=== PATIENT | female | born 1995 | race Two or more races ===

== ENCOUNTER 2024-11-04 09:49 | Outpatient (AMB) | payer MEDICAID, SELFPAY ==
[2024-11-04 09:57] VITALS: BP 128/80; PULSE 90; RESP 16; TEMP 36.2; O2SAT 98; BMI 28.6
--- NOTE | 2024-11-04 09:57 | OBCLNT_ITS ---
Vital Signs 11/04/24 09:57 Height 1.68 m Height Method Stated Weight 80.853 kg Weight Measurement Method Standing Scale BMI 28.6 BP 128/80 Blood Pressure Source Automatic Cuff Blood Pressure Location Left Upper Arm Position Sitting Respiration 16 Pulse 90 Pulse Source Monitor Temp 97.2 F Temp Source Oral Pulse Oximetry (%) 98 Oxygen Delivery Method Room Air Allergies/Home Meds Allergies & Medications Allergies NKA* Allergy (Uncoded 11/04/24 09:59) Medication Reconciliation vit no.95-ferrous fumarate 28 mg-folic acid 800 mcg tablet () 1 tab PO QDAY 11/07/19 [History Confirmed 11/04/24] Intake Visit Data Collection New Patient or Established: Established Patient (seen at [facility] within 3 years) Reason for Visit:: OB Return Seen by Clinical Staff ONLY (RN/MA): No [employer] Kn[employer] Goods Required: No Do You Feel Safe at Home: Yes Authorities Contacted: N/A PCP or OBGYN visit in last 3 months: Yes Date of Last PCP or OBGYN visit: 10/27/24 Hx Now: Yes Are you currently on any form of Control: No Pain Present Currently: No Pain Scale Used: Albright-Salter/Numerical Pain scale:: 0 Smoking Status Smoking Status: Never smoker Questionnaires Covid-19 Vaccine Questionnaire Has patient been vacinated for Covid-19 Have you been vacinated for Covid-19: Yes PHQ-9 PHQ-2 Over the last 2 weeks, how often have you been bothered by any of the following problems? 1. Little interest or pleasure in doing things: not at all 2. Feeling down, depressed, or hopeless: not at all Total score: 0 PHQ-9 3. Trouble falling or staying asleep, or sleeping too much: Not at all 4. Feeling tired or having little energy: Not at all 5. Poor appetite or overeating: Not at all 6. Feeling bad about yourself - or that you are a failure or have let yourself or your family down: Not at all 7. Trouble concentrating on things, such as reading the newspaper or watching television: Not at all 8. Moving or speaking so slowly that other people could have noticed? - Or the opposite - being so fidgety or restless that you have been moving around a lot more than usual: not at all 9. Thoughts that you would be better off or of hurting yourself in some way: Not at all Total score: 0 Source: Developed by Drs. Elmer Morrissey, Carla Garza, Maximino Roche and colleagues, with an educational kaylene from [employer]. 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 at Home: Yes Past Medical History Past Medical History Have you ever been diagnosed with any of the following: Neurological Problems Cerebrovascular Accident (CVA): No Transient Ischemic Attacks (TIA): No Dementia: No Alzheimer's Disease: No Parkinson's Disease: No Brain Tumor: No Meningitis: No Seizures: No Epilepsy: No Multiple Sclerosis: No Cerebral Palsy: No Amyotrophic Lateral Sclerosis (ALS/Stephanie Gehrig's): No Guillain-[place] Syndrome: No Spina Bifida: No Paralysis: No Peripheral Neuropathy: No Nam's Palsy: No Subdural Hematoma: No Migraine: No Head Trauma: No Spinal Cord Injury: No Traumatic Brain Injury: No Cardiology Problems Myocardial Infarction: No Cardiac Arrhythmia: No Atrial Fibrillation: No Angina: No Heart Murmur: No Coronary Artery Disease: No Atherosclerotic Heart Disease: No Peripheral Vascular Disease: No Hypercholesterolemia: No Aneurysm: No Congestive Heart Failure: No Congenital Heart Disease: No Valvular Heart Disease: No Rheumatic Fever: No Cardiomyopathy: No Edema: No Pericarditis: No Cellulitis: No Deep Vein Thrombosis: No Hypertension: Yes (mother,father, grandfather) Hypotension: No Respiratory Problems Chronic Obstructive Pulmonary Disease (COPD): No Asthma: No Bronchitis: No Smoking: No Smoking Exposure: No Tobacco Use: No Clubbing: No Exposure to Respiratory Irritants: No Intubation: No Stomache/Intestinal Problems Liver Cancer: No Hepatitis: No Cirrhosis: No Pancreatic Cancer: No Colorectal Cancer: No Genital/Urinary Problems Renal Disease: No Prostate Cancer: No Reproductive Problems Breast Cancer: No Endometriosis: No Fibroids: No Previous Pregnancies: Yes (x1) Testicular Cancer: No Musculoskeletal Problems Bone Cancer: No Head,Eye,Nose,Throat Problems Cataracts: No Glaucoma: No Endocrine Problems Diabetes Mellitus Type 1: No Diabetes Mellitus Type 2: No Hypoglycemia: No Tyson's Syndrome: No Waller's Disease: No Hyperthyroidism: No Hypothyroidism: No Thyroid Cancer: No Parathyroid Disease: No Pituitary Disease: No Systemic Lupus Erythematosus: No Syndrome of Inappropriate Antidiuretic Hormone: No Adrenal Disease: No Graves' Disease: No Blood Problems Anemia: Yes Psychologic Problems Schizophrenia: No Recreational Drug Use: No Bipolar Disorder: No Depression: No Anxiety: No Other Problems Hospitalization: No Down Syndrome: No Developmental Delay: No Shingles: No Falls: No Blood Transfusions: No Blood Transfusion Reaction: No Anesthesia Reactions: No Organ Transplant: No Chemotherapy: No Radiation Therapy: No Hyperbaric Therapy: No MRSA: No VRSA: No Vancomycin-Resistant Enterococci: No Human Immunodeficiency Virus (HIV): No Chicken Pox: No Measles: No Mumps: No Rubella (Maltese Measles): No Pertussis: No Clostridium Difficile: No Cervical Cancer: No Lung Cancer: No Ovarian Cancer: No Surgical History Breast Surgery: No Cancer Surgery: No Carotid Endarterectomy: No History of Present Illness HPI Narrative The patient, who is , reports ongoing nausea. She denies any recent spotting or cramping. The patient was seen in the clinic last week. She mentions not receiving a prescription for vitamins from the provider at [facility]. The provider attempted to perform an ultrasound during the visit but was unable to obtain adequate visualization for measurements or assessment. No cramping/ bleeding No nausea/ vomiting Review of Systems Review of Systems Systems Reviewed: All systems reviewed, normal except as documented Visit MÓNICA Calculator Estimated Delivery Date Method Current WG Current Estimate 06/18/25 LMP (Certain) 7w 5d Exam General Limitations: no limitations General Appearance: alert, in no apparent distress, comfortable, cooperative, healthy appearing, well developed and well groomed Head Head exam: atraumatic, normocephalic and normal inspection Neck Neck exam: Present normal inspection, full ROM and trachea midline Chest Chest inspection: Present normal inspection and symmetric chest wall rise Abdominal Abdominal exam: Present soft and normal bowel sounds Extremities Extremities exam: Present normal inspection and full ROM Back Back exam: Present normal inspection and full ROM Psych Psychiatric exam: Present normal affect and normal mood Skin Skin exam: Present warm, dry, intact and normal color Assessment & Plan Diagnosis / Problem List (1) Threatened : Status: Acute Plan: with nausea Patient is in early with ongoing nausea. There has been no recent spotting or cramping. A previous ultrasound was performed last week. Today's in- office abdominal ultrasound was inconclusive due to poor visualization. The clinician is concerned about potential miscarriage and has ordered a formal transvaginal ultrasound to confirm viability. - STAT transvaginal ultrasound ordered to confirm viability - Prescription for vitamins to be resent to pharmacy - Follow-up after ultrasound results are available (2) Supervision of high risk , unspecified, first trimester: Status: Acute Plan: Pt Education Educated the patient on the importance of care, including taking vitamins with folic acid, iron, and calcium. Emphasized avoiding alcohol, smoking, and certain medications. Discussed common symptoms like nausea and fatigue, advising small, frequent meals and adequate hydration. Explained the need for regular check-ups and recommended safe physical activities. Instructed on signs of complications, such as severe cramping or bleeding, and when to seek immediate medical attention. Highlighted the importance of a balanced diet and avoiding high-risk foods. Encouraged open communication about any concerns or questions. Encouraged keeping up with all appointments and tests. Additional Assessment Medical Decision Making Kasia Feldman is a patient presenting with ongoing nausea and a history of spotting. The patient's continued nausea without new spotting or cramping suggests a potentially normal early course. However, due to inadequate visualization on bedside ultrasound, there is concern for potential miscarriage or ectopic . The decision to order a formal transvaginal ultrasound is based on the need to confirm viability and rule out complications such as ectopic or missed . The urgency of the ultrasound request (STAT) indicates a high level of concern for these potential complications. The limited bedside ultrasound findings, including visualization of the bladder and ovary, contributed to the decision for more comprehensive imaging. Office Procedures OB Clinic LOC & Office Proc's Nursing/Assessment Patient Status: Established Patient OB Clinic Nursing Assessment: BP Monitoring, Medication Reconciliation, Update PMH in EMR and Vital Signs OB Clinic Coordination of Care: Consent,records obtained, informed consent, Education Simp Pt/Fam and Staff clarify orders Special Needs: Heart tones Established Patient Charge Established Patient Point Assignment: 105 Established Patient Point Charge: EP Level 3 (80-115)
== END 2024-11-04 10:20 | disposition home or self-care (01) ==
LOC: HODSOBC 09:49
PROVIDERS: PCP Obstetrics & Gynecology; Referring Provider Obstetrics & Gynecology; Supervising Provider Obstetrics & Gynecology; Visit Provider Obstetrics & Gynecology
DX: O20.0 Threatened abortion (principal); Z3A.00 Weeks of gestation of pregnancy not specified
CPT/HCPCS: 99213; G0463

== ENCOUNTER → 2024-11-05 | Outpatient (CLI) | payer MEDICAID, SELFPAY ==
--- NOTE | 2024-11-05 15:03 | XR_ITS ---
Examination: Complete OB ultrasound, less than 14 weeks, transabdominal Date and time of exam: November 05, 2024 at 1514 hrs. Indications: High risk diagnosis Technique: Obstetrical ultrasound images less than 14 weeks performed via transabdominal imaging Findings: A normal shaped single intrauterine gestation is present in the uterus. pole 1.2 cm corresponds to 7 weeks 3 days gestational age. Cardiac motion 152 BPM Ultrasonographic survey of visible and placental structures unremarkable. Amniotic fluid volume appears appropriate for this estimated gestational age. Right ovary 3.5 cm arterial flow Left ovary 3.0 cm arterial flow 18 mm cyst Impression: Viable intrauterine gestation 7 weeks 3 days.
== END | disposition home or self-care (01) ==
PROVIDERS: PCP Family Medicine; Referring Provider Obstetrics & Gynecology; Visit Provider Obstetrics & Gynecology
DX: O20.0 Threatened abortion (principal); Z3A.01 Less than 8 weeks gestation of pregnancy
CPT/HCPCS: 76801

== ENCOUNTER 2024-11-20 11:17 | Outpatient (AMB) | payer MEDICAID, SELFPAY ==
--- NOTE | 2024-11-20 11:20 | AMB.OBVISIT ---
Vital Signs 11/20/24 11:24 Height 1.68 m Height Method Stated Weight 82.781 kg Weight Measurement Method Standing Scale BMI 29.3 BP 135/86 H Blood Pressure Source Automatic Cuff Blood Pressure Location Left Upper Arm Position Sitting Respiration 16 Pulse 82 Pulse Source Monitor Temp 98 F Temp Source Oral Pulse Oximetry (%) 99 Oxygen Delivery Method Room Air Allergies/Home Meds Allergies & Medications Allergies NKA* Allergy (Uncoded 11/20/24 11:25) Medication Reconciliation vit no.95-ferrous fumarate 28 mg-folic acid 800 mcg tablet () 1 tab PO QDAY 11/20/24 [History Confirmed 11/20/24] vitamin with calcium no.72-iron 27 mg-folic acid 1 mg tablet ( Vitamins Plus Low Iron) 1 tab PO QDAY 90 days #90 tabs 11/20/24 [Rx] Intake Visit Data Collection New Patient or Established: Established Patient (seen at [facility] within 3 years) Reason for Visit:: CARE Seen by Clinical Staff ONLY (RN/MA): No Curator Of Collections Required: No Do You Feel Safe at Home: Yes Authorities Contacted: N/A PCP or OBGYN visit in last 3 months: Yes Date of Last PCP or OBGYN visit: 11/04/24 Hx Now: Yes Are you currently on any form of Control: No Last menstrual period: 09/11/24 Pain Present Currently: No Pain Scale Used: Albright-Salter/Numerical Pain scale:: 0 Smoking Status Smoking Status: Never smoker Questionnaires Covid-19 Vaccine Questionnaire Has patient been vacinated for Covid-19 Have you been vacinated for Covid-19: Yes PHQ-9 PHQ-2 Over the last 2 weeks, how often have you been bothered by any of the following problems? 1. Little interest or pleasure in doing things: not at all 2. Feeling down, depressed, or hopeless: not at all Total score: 0 PHQ-9 3. Trouble falling or staying asleep, or sleeping too much: Not at all 4. Feeling tired or having little energy: Not at all 5. Poor appetite or overeating: Not at all 6. Feeling bad about yourself - or that you are a failure or have let yourself or your family down: Not at all 7. Trouble concentrating on things, such as reading the newspaper or watching television: Not at all 8. Moving or speaking so slowly that other people could have noticed? - Or the opposite - being so fidgety or restless that you have been moving around a lot more than usual: not at all 9. Thoughts that you would be better off or of hurting yourself in some way: Not at all Total score: 0 Source: Developed by Drs. Elmer Morrissey, Carla Garza, Maximino Roche and colleagues, with an educational kaylene from [employer]. 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 at Home: Yes Past Medical History Past Medical History Have you ever been diagnosed with any of the following: Neurological Problems Cerebrovascular Accident (CVA): No Transient Ischemic Attacks (TIA): No Dementia: No Alzheimer's Disease: No Parkinson's Disease: No Brain Tumor: No Meningitis: No Seizures: No Epilepsy: No Multiple Sclerosis: No Cerebral Palsy: No Amyotrophic Lateral Sclerosis (ALS/Stephanie Gehrig's): No Guillain-[place] Syndrome: No Spina Bifida: No Paralysis: No Peripheral Neuropathy: No Nam's Palsy: No Subdural Hematoma: No Migraine: No Head Trauma: No Spinal Cord Injury: No Traumatic Brain Injury: No Cardiology Problems Myocardial Infarction: No Cardiac Arrhythmia: No Atrial Fibrillation: No Angina: No Heart Murmur: No Coronary Artery Disease: No Atherosclerotic Heart Disease: No Peripheral Vascular Disease: No Hypercholesterolemia: No Aneurysm: No Congestive Heart Failure: No Congenital Heart Disease: No Valvular Heart Disease: No Rheumatic Fever: No Cardiomyopathy: No Edema: No Pericarditis: No Cellulitis: No Deep Vein Thrombosis: No Hypertension: Yes (mother,father, grandfather) Hypotension: No Respiratory Problems Chronic Obstructive Pulmonary Disease (COPD): No Asthma: No Bronchitis: No Smoking: No Smoking Exposure: No Tobacco Use: No Clubbing: No Exposure to Respiratory Irritants: No Intubation: No Stomache/Intestinal Problems Liver Cancer: No Hepatitis: No Cirrhosis: No Pancreatic Cancer: No Colorectal Cancer: No Genital/Urinary Problems Renal Disease: No Prostate Cancer: No Reproductive Problems Breast Cancer: No Endometriosis: No Fibroids: No Previous Pregnancies: Yes (x1) Testicular Cancer: No Musculoskeletal Problems Muscular Dystrophy: No Myasthenia Gravis: No Marfan's Syndrome: No Bone Cancer: No Arthritis: No Head,Eye,Nose,Throat Problems Cataracts: No Glaucoma: No Blind: No Retinal Detachment: No Macular Degeneration: No Chronic Ear Infections: No Deafness: No Eye Prosthesis: No Endocrine Problems Diabetes Mellitus Type 1: No Diabetes Mellitus Type 2: No Hypoglycemia: No [place]'s Syndrome: No [place]'s Disease: No Hyperthyroidism: No Hypothyroidism: No Thyroid Cancer: No Parathyroid Disease: No Pituitary Disease: No Systemic Lupus Erythematosus: No Syndrome of Inappropriate Antidiuretic Hormone: No Adrenal Disease: No Graves' Disease: No Blood Problems Anemia: Yes Psychologic Problems Schizophrenia: No Recreational Drug Use: No Bipolar Disorder: No Depression: No Anxiety: No Other Problems Hospitalization: No Down Syndrome: No Developmental Delay: No Shingles: No Falls: No Blood Transfusions: No Blood Transfusion Reaction: No Anesthesia Reactions: No Organ Transplant: No Chemotherapy: No Radiation Therapy: No Hyperbaric Therapy: No MRSA: No VRSA: No Vancomycin-Resistant Enterococci: No Human Immunodeficiency Virus (HIV): No Chicken Pox: No Measles: No Mumps: No Rubella (Gu[place]ian Measles): No Pertussis: No Clostridium Difficile: No Cervical Cancer: No Lung Cancer: No Ovarian Cancer: No Surgical History Breast Surgery: No Cancer Surgery: No Carotid Endarterectomy: No History of Present Illness ROSIE Pedroza presents for follow-up care. She was previously seen on 11-04-2024, where a bedside ultrasound showed a pole but no heart tones. A subsequent official transvaginal ultrasound on 11-05-2024 revealed an intrauterine gestational sac corresponding to 7 weeks and 3 days, with cardiac motion of 152 beats per minute, overall normal ultrasound. The patient denies any other problems today. The patient reports experiencing dizziness and nausea but denies any cramping. She did not receive her previously prescribed nausea medication. Initial labs show blood group O with Rh positive, hepatitis C negative, rubella immune, RPR non-reactive, HIV negative, hepatitis B negative, and urine culture with no growth. The patient is currently at 9 weeks and 2 days gestation. No CTX/LOF/VB Review of Systems Review of Systems Systems Reviewed: All systems reviewed, normal except as documented Visit MÓNICA Calculator Estimated Delivery Date Method Current WG Current Estimate 06/21/25 Ultrasound #1 10w 2d Other Estimates 06/18/25 LMP (Certain) 10w 5d Exam General Limitations: no limitations General Appearance: alert, in no apparent distress, comfortable, cooperative, healthy appearing, well developed and well groomed Head Head exam: atraumatic, normocephalic and normal inspection Neck Neck exam: Present normal inspection, full ROM and trachea midline Chest Chest inspection: Present normal inspection and symmetric chest wall rise Abdominal Abdominal exam: Present soft and normal bowel sounds Extremities Extremities exam: Present normal inspection and full ROM Back Back exam: Present normal inspection and full ROM Psych Psychiatric exam: Present normal affect and normal mood Skin Skin exam: Present warm, dry, intact and normal color Assessment & Plan Diagnosis / Problem List (1) Threatened : Status: Acute (2) Supervision of high risk , unspecified, first trimester: Status: Acute Plan: Intrauterine at 9 weeks 2 days gestation Patient is at 9 weeks 2 days gestation based on last menstrual period and confirmed by ultrasound on 11-05-2024. The ultrasound showed an intrauterine gestational sac corresponding to 7 weeks and 3 days, with cardiac motion of 152 beats per minute, overall normal. The gestational age difference of less than 7 days between LMP and ultrasound is considered a match. Initial labs show blood group O with Rh positive, hepatitis C negative, rubella immune, RPR non-reactive, HIV negative, hepatitis B negative, and urine culture with no growth. - Genetic testing paperwork provided for testing at 9 weeks 2 days - Results expected in 2 to 3 days after blood draw - Referral made for 12-week ultrasound in [place] - Follow-up appointment scheduled in 4 weeks Nausea and dizziness in Patient reports experiencing dizziness and nausea, common symptoms in early . She did not receive her previously prescribed nausea medication. - Prescription for nausea medication re-sent to [facility] on [address] Office Procedures OB Clinic LOC & Office Proc's Nursing/Assessment Patient Status: Established Patient OB Clinic Nursing Assessment: Medication Reconciliation, Update PMH in EMR and Vital Signs OB Clinic Coordination of Care: Complex Care and Chronic Disease 1-5, Consent,records obtained, informed consent, Education Simp Pt/Fam and Staff clarify orders Special Needs: Heart tones Established Patient Charge Established Patient Point Assignment: 115 Established Patient Point Charge: EP Level 3 (80-115)
[2024-11-20 11:24] VITALS: BP 135/86; PULSE 82; RESP 16; TEMP 36.6; O2SAT 99; BMI 29.3
== END 2024-11-20 11:37 | disposition home or self-care (01) ==
LOC: HODSOBC 11:17
PROVIDERS: PCP Obstetrics & Gynecology; Referring Provider Obstetrics & Gynecology; Supervising Provider Obstetrics & Gynecology; Visit Provider Obstetrics & Gynecology
DX: O20.0 Threatened abortion (principal); O09.91 Supervision of high risk pregnancy, unspecified, first trimester; Z3A.09 9 weeks gestation of pregnancy
CPT/HCPCS: 99213; G0463

== ENCOUNTER 2024-12-24 11:36 | Outpatient (AMB) | payer MEDICAID, SELFPAY ==
--- NOTE | 2024-12-24 12:39 | OBCLNT_ITS ---
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 1. Little interest or pleasure in doing things: not at all PHQ-9 8. Moving or speaking so slowly that other people could have noticed? - Or the opposite - being so fidgety or restless that you have been moving around a lot more than usual: not at all Source: Developed by Drs. Elmer Morrissey, Carla Garza, Maximino Roche and colleagues, with an educational kaylene from [employer]. Social History Living Situation History Lives With: Family Housing: House Tobacco History Smoking Status: Never smoker Second Hand Smoke Exposure: No Alcohol History Alcohol Intake: Never Substance Use History Substance Use: no Domestic Abuse History Do You Feel Safe at Home: Yes Past Medical History Past Medical History Have you ever been diagnosed with any of the following: Neurological Problems Cerebrovascular Accident (CVA): No Transient Ischemic Attacks (TIA): No Dementia: No Alzheimer's Disease: No Parkinson's Disease: No Brain Tumor: No Meningitis: No Seizures: No Epilepsy: No Multiple Sclerosis: No Cerebral Palsy: No Amyotrophic Lateral Sclerosis (ALS/Stephanie Gehrig's): No Guillain-Dolph Syndrome: No Spina Bifida: No Paralysis: No Peripheral Neuropathy: No Nam's Palsy: No Subdural Hematoma: No Migraine: No Head Trauma: No Spinal Cord Injury: No Traumatic Brain Injury: No Cardiology Problems Myocardial Infarction: No Cardiac Arrhythmia: No Atrial Fibrillation: No Angina: No Heart Murmur: No Coronary Artery Disease: No Atherosclerotic Heart Disease: No Peripheral Vascular Disease: No Hypercholesterolemia: No Aneurysm: No Congestive Heart Failure: No Congenital Heart Disease: No Valvular Heart Disease: No Rheumatic Fever: No Cardiomyopathy: No Edema: No Pericarditis: No Cellulitis: No Deep Vein Thrombosis: No Hypertension: Yes (mother,father, grandfather) Hypotension: No Respiratory Problems Chronic Obstructive Pulmonary Disease (COPD): No Asthma: No Bronchitis: No Smoking: No Smoking Exposure: No Tobacco Use: No Clubbing: No Exposure to Respiratory Irritants: No Intubation: No Stomache/Intestinal Problems Liver Cancer: No Hepatitis: No Cirrhosis: No Pancreatic Cancer: No Colorectal Cancer: No Genital/Urinary Problems Renal Disease: No Reproductive Problems Breast Cancer: No Endometriosis: No Fibroids: No Previous Pregnancies: Yes (x1) Musculoskeletal Problems Muscular Dystrophy: No Myasthenia Gravis: No Marfan's Syndrome: No Bone Cancer: No Arthritis: No Head,Eye,Nose,Throat Problems Cataracts: No Glaucoma: No Blind: No Retinal Detachment: No Macular Degeneration: No Chronic Ear Infections: No Deafness: No Eye Prosthesis: No Endocrine Problems Diabetes Mellitus Type 1: No Diabetes Mellitus Type 2: No Hypoglycemia: No Austin's Syndrome: No Zack's Disease: No Hyperthyroidism: No Hypothyroidism: No Thyroid Cancer: No Parathyroid Disease: No Pituitary Disease: No Systemic Lupus Erythematosus: No Syndrome of Inappropriate Antidiuretic Hormone: No Adrenal Disease: No Graves' Disease: No Blood Problems Anemia: Yes Psychologic Problems Schizophrenia: No Recreational Drug Use: No Bipolar Disorder: No Depression: No Anxiety: No Other Problems Hospitalization: No Down Syndrome: No Developmental Delay: No Shingles: No Falls: No Blood Transfusions: No Blood Transfusion Reaction: No Anesthesia Reactions: No Organ Transplant: No Chemotherapy: No Radiation Therapy: No Hyperbaric Therapy: No MRSA: No VRSA: No Vancomycin-Resistant Enterococci: No Human Immunodeficiency Virus (HIV): No Chicken Pox: No Measles: No Mumps: No Rubella (Indonesian Measles): No Pertussis: No Clostridium Difficile: No Cervical Cancer: No Lung Cancer: No Ovarian Cancer: No Surgical History Breast Surgery: No Cancer Surgery: No Carotid Endarterectomy: No History of Present Illness HPI Narrative - Kasia Feldman is a 3 para 2 at 14 weeks and 3 days gestation presenting for a visit and review of lab results. - She reports ongoing nausea that comes and goes. - Patient continues to experience headaches, which were mentioned at the previous visit. - New symptoms since last visit: - Dizzy spells with near-fainting episodes - Patient catches herself and sits on the floor to prevent falling - Random nosebleed yesterday - Occurred on one side - Lasted approximately 30-40 minutes - Resolved spontaneously - Patient denies any other new symptoms or concerns. No CTX/LOF/VB. FM not perceived. No WELLS/ VS, Epig/RUQ Pain OB Ultrasound OB Ultrasound Ultrasound technique: transabdominal Visit OB Visit Log OB Flowsheet Initial Weight: Not Recorded Date -?-?-?-?-?-?-?-?-?-?-?-?- EGA Weight Edema CTX Effacement BP Fundal ht Pres Dilation Effacement Station Visit Note Alb Glu FHR Mov 12/24/24 -?-?-?-?-?-?-?-?-?-?-?-?- 14w 3d Kasia Feldman, at 14w3d gestation, presents for routine care and lab review. No CTX/LOF/VB. FM not yet perceived. No WELLS/VS, Epig/RUQ pain. Reports ongoing nausea, persistent heada ches, new dizziness with near-syncope, and a unilateral nosebleed lasting ~30?40 min (resolved). Ultrasound: FHR 154 bpm, movement noted. Maternity genome test (02/20/2025): 21% f etal fraction, negative for trisomies, female fetus. Assessment & Plan: at 14w3d with intrauterine pregnanc y. Labs and ultrasound reassuring. 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?avoid s tanding alone, stay hydrated, eat frequently Educate on epistaxis care; monitor for r ecurrence Reinforce labor signs and healthy practices 154 active MÓNICA Calculator Estimated Delivery Date Method Current WG Current Estimate 06/21/25 Ultrasound #1 14w 4d Other Estimates 06/18/25 LMP (Certain) 15w 0d Exam General General Appearance: alert, in no apparent distress and healthy appearing Head Head exam: atraumatic Neck Neck exam: Present normal inspection and trachea midline Chest Chest inspection: Present normal inspection and symmetric chest wall rise External exam: Present normal external exam; Absent tenderness Neuro Neurological exam: Present oriented X3 Psych Psychiatric exam: Present normal affect and normal mood Assessment & Plan Diagnosis / Problem List (1) Mild hyperemesis gravidarum: Status: Acute (2) Other specified related conditions, first trimester: Status: Acute (3) Other specified diseases and conditions complicating : Status: Acute (4) Epistaxis: Status: Acute (5) Other specified counseling: Status: Acute Plan Kasia Feldman is a 14 weeks and 3 days presenting for visit and review of lab results, with ongoing nausea, headaches, and recent episodes of dizziness and nosebleed. Intrauterine at 14 weeks 3 days gestation Assessment: Patient is a at 14 weeks and 3 days gestation. Maternity genome test results from February 20, 2025, show 21% fraction, negative for all trisomies and chromosomal abnormalities, with female gender identified. Ultrasound performed during the visit confirms cardiac activity with a heart rate of 154 bpm, which is within normal limits. movement was observed during the ultrasound. Plan: - Follow-up visit scheduled in 4 weeks - 20-week ultrasound scheduled for January 26 at [facility] Nausea and vomiting of Assessment: Patient reports ongoing nausea that comes and goes. This is consistent with her current gestational age, as hyperemesis typically improves after 15 weeks. Plan: - Anticipate improvement in symptoms over the next week as patient approaches 15 weeks gestation - Encourage adequate hydration and frequent small meals (every 4-5 hours) to maintain blood sugar levels Headaches Assessment: Patient reports ongoing headaches, which were also noted in the previous visit. This symptom is common during and may be related to hormonal changes or dehydration. Plan: - Continue to monitor symptoms - Encourage adequate hydration Dizziness and near-syncopal episodes Assessment: Patient reports recent episodes of dizziness and near-fainting, which she manages by sitting down. These symptoms are likely related to physiological changes in , particularly between 15-20 weeks when blood supply is increasingly diverted to the placenta and uterus. This typically resolves after 20 weeks gestation. Plan: - Advise patient to avoid being alone and to have someone nearby for assistance if possible - Encourage adequate hydration and frequent small meals to maintain blood sugar levels - Educate patient on the temporary nature of these symptoms, typically resolving after 20 weeks gestation - Monitor symptoms and reassess at next visit Epistaxis Assessment: Patient reports a recent episode of unilateral epistaxis lasting 30- 40 minutes, which resolved spontaneously. Nosebleeds are common in due to increased blood volume and hormonal changes affecting nasal mucosa. Plan: - Educate patient on proper technique for managing nosebleeds (apply direct pressure) - Monitor for recurrence; if epistaxis recurs, further evaluation may be warranted Educated the patient on labor signs, including regular contractions, lower back pain, and changes in vaginal discharge. Advised avoiding heavy lifting and getting adequate rest. Instructed to contact the office immediately if any signs occur. Discussed the importance of a balanced diet rich in folic acid, iron, and calcium, and provided a list of recommended and to-avoid foods. Emphasized avoiding high-sugar foods to reduce gestational diabetes risk. Encouraged hydration and frequent, small meals for energy..
== END 2024-12-24 12:22 | disposition home or self-care (01) ==
LOC: HODSOBC 11:36
PROVIDERS: PCP Obstetrics & Gynecology; Referring Provider Obstetrics & Gynecology; Supervising Provider Obstetrics & Gynecology; Visit Provider Obstetrics & Gynecology
DX: O09.892 Supervision of other high risk pregnancies, second trimester (principal); Z3A.14 14 weeks gestation of pregnancy; O21.0 Mild hyperemesis gravidarum; O26.892 Other specified pregnancy related conditions, second trimester; R04.0 Epistaxis; R51.9 Headache, unspecified
CPT/HCPCS: 99213; G0463

== ENCOUNTER 2025-01-28 13:56 | Outpatient (AMB) | payer MEDICAID, SELFPAY ==
[2025-01-28 14:25] VITALS: BP 129/85; PULSE 74; RESP 18; TEMP 36.2; O2SAT 97; BMI 31.8
--- NOTE | 2025-01-28 14:25 | OBCLNT_ITS ---
Vital Signs 01/28/25 14:25 Height 1.68 m Height Method Stated Weight 89.811 kg Weight Measurement Method Standing Scale BMI 31.8 BP 129/85 H Blood Pressure Source Automatic Cuff Blood Pressure Location Left Upper Arm Position Sitting Respiration 18 Pulse 74 Pulse Source Monitor Temp 97.2 F Temp Source Oral Pulse Oximetry (%) 97 Oxygen Delivery Method Room Air Allergies/Home Meds Allergies & Medications Allergies NKA* Allergy (Uncoded 01/28/25 14:27) Medication Reconciliation vit no.95-ferrous fumarate 28 mg-folic acid 800 mcg tablet () 1 tab PO QDAY 11/20/24 [History Confirmed 01/28/25] vitamin with calcium no.72-iron 27 mg-folic acid 1 mg tablet ( Vitamins Plus Low Iron) 1 tab PO QDAY 90 days #90 tabs 11/20/24 [Rx Confirmed 01/28/25] Intake Visit Data Collection New Patient or Established: Established Patient (seen at [facility] within 3 years) Reason for Visit:: OBC Seen by Clinical Staff ONLY (RN/MA): No Conflict Resolution Professional Required: No Do You Feel Safe at Home: Yes Authorities Contacted: N/A PCP or OBGYN visit in last 3 months: Yes Date of Last PCP or OBGYN visit: 11/20/24 Hx Now: Yes Are you currently on any form of Control: No Pain Present Currently: No Pain Scale Used: Albright-Salter/Numerical Pain scale:: 0 Smoking Status Smoking Status: Never smoker Questionnaires Covid-19 Vaccine Questionnaire Has patient been vacinated for Covid-19 Have you been vacinated for Covid-19: Yes PHQ-9 PHQ-2 Over the last 2 weeks, how often have you been bothered by any of the following problems? 1. Little interest or pleasure in doing things: not at all 2. Feeling down, depressed, or hopeless: not at all Total score: 0 PHQ-9 3. Trouble falling or staying asleep, or sleeping too much: Not at all 4. Feeling tired or having little energy: Not at all 5. Poor appetite or overeating: Not at all 6. Feeling bad about yourself - or that you are a failure or have let yourself or your family down: Not at all 7. Trouble concentrating on things, such as reading the newspaper or watching television: Not at all 8. Moving or speaking so slowly that other people could have noticed? - Or the opposite - being so fidgety or restless that you have been moving around a lot more than usual: not at all 9. Thoughts that you would be better off or of hurting yourself in some way: Not at all Total score: 0 If you checked off any problems, how difficult have these problems made it for you to do your work, take care of things at home, or get along with other people?: not difficult at all Source: Developed by Drs. Elmer Morrissey, Carla Garza, Maximino Roche and colleagues, with an educational kaylene from [employer]. 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 Patient reports occasional dizziness without fainting. Denies WELLS, VC, and epigastric pain. Patient had an anatomy ultrasound on 30 January 2025. Detailed anatomy survey was within normal limits. Gender is female. Cervix is 3.36 centimeters. Adnexa appear within normal limits. Anterior placenta, no previa. - Kasia Feldman is a 29-year-old presenting for care at 19 weeks and 3 days gestation. - Patient was last seen at 14 weeks gestation with complaints of: - Ongoing nausea - Headaches with near-syncope episodes - Epistaxis (nosebleeds) - Current symptoms and updates: - Patient reports feeling the beginning of movement - Experienced one or two additional episodes of epistaxis since last visit - Continues to experience lightheadedness, but denies fainting - Recent healthcare interactions: - Underwent maternal medicine ultrasound on January 26, 2025, at [facility] - Verbally informed that everything looked fine on the ultrasound Laboratory, Imaging, and Diagnostic Test Results - Anatomy Ultrasound (01/26/2025): - Detailed anatomy survey: Within normal limits - sex: Female - Cervix length: 3.36 cm - Adnexa: Appear within normal limits - Placenta: Anterior, no previa - presentation: Cephalic - heart rate: 151 bpm (normal) heart tones: 151 bpm. Review of Systems Review of Systems Systems Reviewed: All systems reviewed, normal except as documented Care OB Visit Log OB Flowsheet Initial Weight: Not Recorded Date -?-?-?-?-?-?-?-?-?-?-?-?- EGA Weight BP Alb Glu CTX Pres Fundal ht FHR Mov Dilation Station Effacement Hx Notes Visit Note 12/24/24 -?-?-?-?-?-?-?-?-?-?-?-?- 14w [address] becca Feldman, at 14w3d gestation, presents for routine care and lab review. No CTX/LOF/VB. FM not yet perceived. No WELLS/VS, Epig/RUQ pain. Reports ongoing nausea, persistent heada ches, new dizziness with near-syncope, and a unilateral nosebleed lasting ~30?40 min (resolved). Ultrasound: FHR 154 bpm, movement noted. Maternity genome test (02/20/2025): 21% f etal fraction, negative for trisomies, female fetus. Assessment & Plan: at 14w3d with intrauterine pregnanc y. Labs and ultrasound reassuring. 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?avoid s tanding alone, stay hydrated, eat frequently Educate on epistaxis care; monitor for r ecurrence Reinforce labor signs and healthy practice s MÓNICA Calculator Estimated Delivery Date Method Current WG Current Estimate 06/21/25 Ultrasound #1 21w 3d Other Estimates 06/18/25 LMP (Certain) 21w 6d Exam General General Appearance: alert, in no apparent distress and healthy appearing Head Head exam: atraumatic Neck Neck exam: Present normal inspection and trachea midline Chest Chest inspection: Present normal inspection and symmetric chest wall rise External exam: Present normal external exam; Absent tenderness Neuro Neurological exam: Present oriented X3 Psych Psychiatric exam: Present normal affect and normal mood Office Procedures OB Clinic LOC & Office Proc's Nursing/Assessment Patient Status: Established Patient OB Clinic Nursing Assessment: Medication Reconciliation, Update PMH in EMR and Vital Signs OB Clinic Coordination of Care: Education Complex Pt/Fam, Consent,records o btained, informed consent, Lab and Imaging orders, Results/Orders obtained and Staff clarify orders Special Needs: Heart tones Established Patient Charge Established Patient Point Assignment: 115 Established Patient Point Charge: EP Level 3 (80-115) Assessment & Plan Diagnosis / Problem List (1) Other specified diseases and conditions complicating : Status: Acute (2) Epistaxis: Status: Acute (3) Other specified counseling: Status: Acute (4) Other specified related conditions, first trimester: Status: Acute Plan Kasia Feldman, a 29-year-old female at 19 weeks and 3 days gestation, presenting for routine care with a history of nausea, headaches, near- syncope episodes, and epistaxis. Routine Care Assessment: Patient is at 19 weeks and 3 days gestation, progressing normally. Recent anatomy ultrasound on January 30, 2025, showed normal findings including a female fetus, cervical length of 3.36 cm, normal adnexa, and anterior placenta without previa. heart rate is 151 bpm, which is within normal limits. Patient reports feeling early movements. Previous symptoms of nausea and headaches with near-syncope episodes appear to have improved. Epistaxis has mostly resolved with only 1-2 recent episodes. Plan: - Continue vitamins - Maintain hydration, especially in warm weather - Return for follow-up visit in 4 weeks - Glucose tolerance test to be ordered at next visit (around 26 weeks gestation) - Monitor for continued dizziness and return sooner if symptoms persist or worsen Heart Rate (FHR) and Dates/Viability Verified Review Labs: Confirm results and address any abnormalities with treatment or referrals. History & Symptoms: Ask about nausea, vomiting, bleeding, or cramping. Screen for mental health concerns. Physical Exam: Check weight, blood pressure, and heart rate (via Doppler). Education: Discuss nutrition, exercise, and avoiding harmful substances. Review safe medications and warning signs (e.g., severe pain, bleeding). Screening Tests: Offer genetic screening if not done. Discuss upcoming anatomy scan (18-20 weeks). Plan: Schedule next visit (typically 4 weeks later) and any needed tests. Keep it supportive, address concerns, and ensure clear follow-up instructions.
== END 2025-01-28 14:37 | disposition home or self-care (01) ==
LOC: HODSOBC 13:56
PROVIDERS: PCP Obstetrics & Gynecology; Referring Provider Obstetrics & Gynecology; Supervising Provider Obstetrics & Gynecology; Visit Provider Obstetrics & Gynecology
DX: O09.892 Supervision of other high risk pregnancies, second trimester (principal); O99.891 Other specified diseases and conditions complicating pregnancy; R04.0 Epistaxis; Z3A.19 19 weeks gestation of pregnancy
CPT/HCPCS: 99213; G0463

== ENCOUNTER 2025-03-04 11:05 | Outpatient (AMB) | payer MEDICAID, SELFPAY ==
[2025-03-04 11:21] VITALS: BP 112/76; PULSE 82; RESP 17; TEMP 36.7; O2SAT 98; BMI 32.3
--- NOTE | 2025-03-04 11:21 | OBCLNT_ITS ---
Vital Signs 03/04/25 11:21 Height 1.68 m Height Method Stated Weight 91.229 kg Weight Measurement Method Standing Scale BMI 32.3 BP 112/76 Blood Pressure Source Automatic Cuff Blood Pressure Location Right Upper Arm Position Sitting Respiration 17 Pulse 82 Pulse Source Monitor Temp 98.1 F Temp Source Temporal Artery Scan Pulse Oximetry (%) 98 Oxygen Delivery Method Room Air Allergies/Home Meds Allergies & Medications Allergies NKA* Allergy (Uncoded 04/29/25 10:43) Medication Reconciliation vit no.95-ferrous fumarate 28 mg-folic acid 800 mcg tablet () 1 tab PO QDAY 11/20/24 [History Confirmed 04/29/25] vitamins with calcium no.72-iron 27 mg-folic acid 1 mg tablet ( Vitamins Plus Low Iron) 1 tab PO QDAY 90 days #90 tabs 11/20/24 [Rx Confirmed ] omeprazole 40 mg capsule,delayed release 40 mg PO QDAY 30 days #30 caps 03/31/25 [Rx Confirmed 04/29/25] Intake Visit Data Collection New Patient or Established: Established Patient (seen at 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 1. Little interest or pleasure in doing things: not at all 2. Feeling down, depressed, or hopeless: not at all Total score: 0 PHQ-9 3. Trouble falling or staying asleep, or sleeping too much: Not at all 4. Feeling tired or having little energy: Not at all 5. Poor appetite or overeating: Not at all 6. Feeling bad about yourself - or that you are a failure or have let yourself or your family down: Not at all 7. Trouble concentrating on things, such as reading the newspaper or watching television: Not at all 8. Moving or speaking so slowly that other people could have noticed? - Or the opposite - being so fidgety or restless that you have been moving around a lot more than usual: not at all 9. Thoughts that you would be better off or of hurting yourself in some way: Not at all Total score: 0 If you checked off any problems, how difficult have these problems made it for you to do your work, take care of things at home, or get along with other people?: not difficult at all Source: Developed by Drs. Elmer Morrissey, Carla Garza, Maximino Roche and colleagues, with an educational kaylene from [employer]. 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: Past Medical History Past Medical History: No Hx Neurological Disorders, No Hx Hypothyroidism, No Hx Hyperthyroidism, No Hx Breast Cancer, No Hx Cardiac Disorders, Yes Hx Hypertension (mother,father, grandfather), No Hx Blood Disorders, Yes Hx Anemia, No Hx Gastrointestinal Disorders, No Hx Renal Disease, No Hx Deep Vein Thrombosis, No Hx Diabetes Mellitus Type 1 and No Hx Diabetes Mellitus Type 2 Care OB Visit Log OB Flowsheet Initial Weight: Not Recorded Date -?-?-?-?-?-?-?-?-?-?-?-?- EGA Weight BP Alb Glu CTX Pres Fundal ht FHR Mov Dilation Station Effacement Hx Notes Visit Note 12/24/24 -?-?-?-?-?-?-?-?-?-?-?-?- 14w [address]d [address] [facility], at 14w3d gestation, presents for routine care and lab review. No CTX/LOF/VB. FM not yet perceived. No WELLS/VS, Epig/RUQ pain. Reports ongoing nausea, persistent heada ches, new dizziness with near-syncope, and a unilateral nosebleed lasting ~30?40 min (resolved). Ultrasound: FHR 154 bpm, movement noted. Maternity genome test (02/20/2025): 21% f etal fraction, negative for trisomies, female fetus. Assessment & Plan: at 14w3d with intrauterine pregnanc y. Labs and ultrasound reassuring. Schedule 20-week US at [facility]?s (01/26) Routine follow-up in 4 weeks Anticipate nausea to improve as she ente rs 2nd trimester Encourage hydration and frequent small m eals (q4?5h) Monitor headaches; advise hydration Medical Lead on orthostatic dizziness?avoid s tanding alone, stay hydrated, eat frequently Educate on epistaxis care; monitor for r ecurrence Reinforce labor signs and healthy practice s 03/04/25 -?-?-?-?-?-?-?-?-?-?-?-?- 24w 3d 91.229 kg 112/76 absent unknown 24 138 active Patient reports good FM. Denies WELLS, VC, and epigastric pain. - Low energy - Pelvic pain - Occurs when lifting legs or walkin g - Described as sore - Located in the lower pelvic area - Order one-hour glucose tolerance test - Recommend elastic belly band for round ligament pain - Sleep on side with pillow behind shoul angelica, preferably left side - Follow up in 4 weeks 04/15/25 -?-?-?-?-?-?-?-?-?-?-?-?- 30w 3d 93.894 kg 124/74 absent cephalic 31 145 active No contractions, LOF, VB and reports good FM. Patient complains of itching. Denies WELLS, VC, and epigastric pain. - Order bile acids - Return in 2 weeks - Benadryl for itching - Preeclampsia precautions - labor precautions 04/29/25 -?-?-?-?-?-?-?-?-?-?-?-?- 32w 3d 94.517 kg 131/86 absent cephalic 33 140 active Previous complaint of pruritus, now resolved, with bile acids at 1.4 (normal <10), ruling out cholestasis of . Patient reports persistent nocturnal pain in the upper abdominal area radiating to the back, potentially indicative of ureteral compression by the gravid uterus. Hemoglobin 11.3, A1c 5.0, and RPR non- reactive. movement reported as normal. Patient experiencing symptoms consistent with pruritic urticarial papules and plaques of (PUPPP), responding to intermittent Benadryl use. - Continue Benadryl as needed for itching - Increase water intake to alleviate upp er abdominal pain - Follow up in 2 weeks MÓNICA Calculator Estimated Delivery Date Method Current WG Current Estimate 06/21/25 Ultrasound #1 33w 0d Other Estimates 06/18/25 LMP (Certain) 33w 3d Office Procedures OB Clinic LOC & Office Proc's Nursing/Assessment Patient Status: Established Patient OB Clinic Nursing Assessment: Medication Reconciliation, Update PMH in EMR and Vital Signs OB Clinic Coordination of Care: Complex Care and Chronic Disease 1-5, Consent,records obtained, informed consent, Education Simp Pt/Fam and Staff clarify orders Special Needs: Heart tones Established Patient Charge Established Patient Point Assignment: 115 Established Patient Point Charge: EP Level 3 (80-115) Assessment & Plan Diagnosis / Problem List (1) Supervision of high risk , unspecified, third trimester: Status: Acute
== END 2025-03-04 11:31 | disposition home or self-care (01) ==
LOC: HODSOBC 11:05
PROVIDERS: PCP Obstetrics & Gynecology; Referring Provider Obstetrics & Gynecology; Supervising Provider Obstetrics & Gynecology; Visit Provider Obstetrics & Gynecology
DX: O09.892 Supervision of other high risk pregnancies, second trimester (principal); O99.891 Other specified diseases and conditions complicating pregnancy; R10.2 Pelvic and perineal pain; Z3A.24 24 weeks gestation of pregnancy
CPT/HCPCS: 99213; G0463

== ENCOUNTER 2025-03-31 10:51 | Outpatient (AMB) | payer MEDICAID, SELFPAY ==
--- NOTE | 2025-03-31 11:06 | OBCLNT_ITS ---
Vital Signs 03/31/25 11:07 Height 1.68 m Height Method Stated Weight 92.986 kg Weight Measurement Method Standing Scale BMI 32.9 BP 125/82 Blood Pressure Source Automatic Cuff Blood Pressure Location Left Upper Arm Position Sitting Respiration 20 Pulse 91 Pulse Source Monitor Temp 97.8 F Temp Source Oral Pulse Oximetry (%) 97 Oxygen Delivery Method Room Air Allergies/Home Meds Allergies & Medications Allergies No Known Allergies Allergy (Verified 06/05/25 13:49) Medication Reconciliation vit no.95-ferrous fumarate 28 mg-folic acid 800 mcg tablet () 1 tab PO QDAY 11/20/24 [History Confirmed 06/05/25] vitamins with calcium no.72-iron 27 mg-folic acid 1 mg tablet ( Vitamins Plus Low Iron) 1 tab PO QDAY 90 days #90 tabs 11/20/24 [Rx Confirmed 06/05/25] omeprazole 40 mg capsule,delayed release 40 mg PO QDAY 30 days #30 caps 03/31/25 [Rx Confirmed 06/05/25] vits no.126-ferrous fum 28 mg iron-folic acid 800 mcg tablet (Classic ) 1 tab PO QDAY 90 days #90 tabs 05/20/25 [Rx Confirmed 06/05/25] Intake Visit Data Collection New Patient or Established: Established Patient (seen at [facility] within 3 years) Reason for Visit:: CARE Seen by Clinical Staff ONLY (RN/MA): No Relay 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 1. Little interest or pleasure in doing things: not at all 2. Feeling down, depressed, or hopeless: not at all Total score: 0 PHQ-9 3. Trouble falling or staying asleep, or sleeping too much: Not at all 4. Feeling tired or having little energy: Not at all 5. Poor appetite or overeating: Not at all 6. Feeling bad about yourself - or that you are a failure or have let yourself or your family down: Not at all 7. Trouble concentrating on things, such as reading the newspaper or watching television: Not at all 8. Moving or speaking so slowly that other people could have noticed? - Or the opposite - being so fidgety or restless that you have been moving around a lot more than usual: not at all 9. Thoughts that you would be better off or of hurting yourself in some way: Not at all Total score: 0 Source: Developed by Drs. Elmer Morrissey, Carla Garza, Maximino Roche and colleagues, with an educational kaylene from [employer]. 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 History Past Medical History: No Hx Neurological Disorders, No Hx Hypothyroidism, No Hx Hyperthyroidism, No Hx Breast Cancer, No Hx Cardiac Disorders, Yes Hx Hypertension (mother,father, grandfather), No Hx Blood Disorders, Yes Hx Anemia, No Hx Gastrointestinal Disorders, No Hx Renal Disease, No Hx Deep Vein Thrombosis, No Hx Diabetes Mellitus Type 1 and No Hx Diabetes Mellitus Type 2 Care OB Visit Log OB Flowsheet Initial Weight: Not Recorded Date -?-?-?-?--?-?-?-?-?-?-?-?- EGA Weight BP Alb Glu CTX Pres Fundal ht FHR Mov Dilation Station Effacement Hx Notes Visit Note 12/24/24 -?-?-?-?-?-?-?-?-?-?-?-?- 14w [address] [facility] Feld[facility], at 14w3d gestation, presents for routine care and lab review. No CTX/LOF/VB. FM not yet perceived. No WELLS/VS, Epig/RUQ pain. Reports ongoing nausea, persistent heada ches, new dizziness with near-syncope, and a unilateral nosebleed lasting ~30?40 min (resolved). Ultrasound: FHR 154 bpm, movement noted. Maternity genome test (02/20/2025): 21% f etal fraction, negative for trisomies, female fetus. Assessment & Plan: at 14w3d with intrauterine pregnanc y. Labs and ultrasound reassuring. Schedule 20-week US at [facility] (01/26) Routine follow-up in 4 weeks Anticipate nausea to improve as she ente rs 2nd trimester Encourage hydration and frequent small m eals (q4?5h) Monitor headaches; advise hydration [employer] on orthostatic dizziness?avoid s tanding alone, stay hydrated, eat frequently Educate on epistaxis care; monitor for r ecurrence Reinforce labor signs and healthy practice s 03/04/25 -?-?-?-?-?-?-?-?-?-?-?-?- 24w 3d 91.229 kg 112/76 absent unknown 24 138 active Patient reports good FM. Denies WELLS, VC, and epigastric pain. - Low energy - Pelvic pain - Occurs when lifting legs or walkin g - Described as sore - Located in the lower pelvic area - Order one-hour glucose tolerance test - Recommend elastic belly band for round ligament pain - Sleep on side with pillow behind shoul angelica, preferably left side - Follow up in 4 weeks 03/31/25 -?-?-?-?-?-?-?-?-?-?-?-?- 28w 2d 92.986 kg 125/82 absent cephalic 28 143 active - She reports severe acid reflux: - Worsening symptoms, especially at ni ght - Initially managed with Tums, but no longer effective - Causing sleep disturbance - Denies back pain - Denies bowel issues (diarrhea, constipation) - Prescribe omeprazole for acid reflux - Continue vitamins - Follow up in 2 weeks - Recommend smaller, more frequent meals and avoiding hot or fatty foods to manage acid reflux 04/15/25 -?-?-?-?-?-?-?-?-?-?-?-?- 30w 3d 93.894 kg 124/74 absent cephalic 31 145 active No contractions, LOF, VB and reports good FM. Patient complains of itching. Denies WELLS, VC, and epigastric pain. - Order bile acids - Return in 2 weeks - Benadryl for itching - Preeclampsia precautions - labor precautions 04/29/25 -?-?-?-?-?-?-?-?-?-?-?-?- 32w 3d 94.517 kg 131/86 absent cephalic 33 140 active Previous complaint of pruritus, now resolved, with bile acids at 1.4 (normal <10), ruling out cholestasis of . Patient reports persistent nocturnal pain in the upper abdominal area radiating to the back, potentially indicative of ureteral compression by the gravid uterus. Hemoglobin 11.3, A1c 5.0, and RPR non- reactive. movement reported as normal. Patient experiencing symptoms consistent with pruritic urticarial papules and plaques of (PUPPP), responding to intermittent Benadryl use. - Continue Benadryl as needed for itchi ng - Increase water intake to alleviate upp er abdominal pain - Follow up in 2 weeks 05/13/25 -?-?-?-?-?-?-?-?-?-?-?-?- 34w 3d 96.162 kg 125/78 occasional cephalic 34 145 active - Persistent pruritus - Taking Benadryl for relief - Reports some improvement with medi cation - Upper abdominal and flank pain - Ongoing, but intermittent - Occurs every 15-20 minutes - Episodes last less than an hour - Continue Brittnee dryl for itching - Monitor abdominal pain; if it lasts lo nger than 1 hour, patient should go to the hospital for monitoring of potential contractions - heart rate check performed: 143 bpm, noted as normal - Ultrasound to be performed (pending in surance verification) 05/20/25 -?-?-?-?-?-?-?-?-?-?-?-?- 35w 3d 95.708 kg 121/77 occasional cephalic 36 145 active - Recent ultrasound on 05/15/2025 showed: - Fetus measuring 34 weeks and 5 days, consistent with dates - Amniotic Fluid Index (MATIAS) of 5.8 cm , borderline low - Cervical length 4.9 cm - heart rate 133 bpm - Anterior placenta - Patient reports no specific complaints or symptoms - Adherence to vitamins: - Patient requested refill of vitamins - Reports issue with pharmacy referral process - Repeat ultrasound for MATIAS measurement in one week at labor and delivery, 4th floor of the hospital - Patient to go to labor and delivery du ring morning hours for the ultrasound - Clinician to call labor and delivery t o place the order for the ultrasound - New prescription for vitamins to be sent to [facility] pharmacy - Follow-up appointment in one week - Potential delivery at 37 to 38 weeks i f fluid levels remain low MÓNICA Calculator Estimated Delivery Date Method Current WG Current Estimate 06/21/25 Ultrasound #1 38w 2d Other Estimates 06/18/25 LMP (Certain) 38w 5d Assessment & Plan Diagnosis / Problem List (1) GERD (gastroesophageal reflux disease): Status: Acute (2) Uterine size date discrepancy: Status: Acute (3) Supervision of high risk , unspecified, third trimester: Status: Acute Plan Problem List - , 28 weeks and 2 days - Gestational diabetes mellitus - Gastroesophageal reflux disease Assessment Patient is a 28-week 2-day woman presenting for routine care. Glucose tolerance test result is 141, slightly above the threshold, with A1c at 4.9. Patient reports severe acid reflux symptoms, unresponsive to Tums. heart rate is 143 bpm, which is within normal range. No reported bowel issues such as diarrhea or constipation. Plan - Prescribe omeprazole for acid reflux - Continue vitamins - Follow up in 2 weeks - Recommend smaller, more frequent meals and avoiding hot or fatty foods to manage acid reflux 1. Progress Reviewed gestational age, growth, and heart rate. Planned frequent visits (every 2 weeks until 36 weeks, then weekly). 2. Instructed patient to monitor movements and report decreases immediately. 3. Testing Counseled on routine third-trimester labs per guidelines. Discussed potential need for ultrasound or monitoring based on risk factors. 4. Preeclampsia Precaution Educated on preeclampsia signs: severe headache, vision changes, right upper quadrant pain, sudden swelling. Advised urgent reporting of symptoms and discussed blood pressure monitoring if high risk. 5. Labor Precautions Reviewed labor signs: regular contractions, pelvic pressure, back pain, bleeding, or fluid leakage. Instructed to seek immediate care for these symptoms. 6. Lifestyle and Delivery Preparation Reinforced vitamins, nutrition, and safe activity. Discussed plan, pain management, and . Advised on labor preparation (e.g., hospital bag) and expectations. 7. Psychosocial Support Assessed emotional well-being and offered resources for mental health or parenting support.
[2025-03-31 11:07] VITALS: BP 125/82; PULSE 91; RESP 20; TEMP 36.6; O2SAT 97; BMI 32.9
== END 2025-03-31 11:20 | disposition home or self-care (01) ==
LOC: HODSOBC 10:51
PROVIDERS: Supervising Provider Obstetrics & Gynecology; Visit Provider Obstetrics & Gynecology
DX: O09.893 Supervision of other high risk pregnancies, third trimester (principal); O26.843 Uterine size-date discrepancy, third trimester; O24.419 Gestational diabetes mellitus in pregnancy, unspecified control; O99.613 Diseases of the digestive system complicating pregnancy, third trimester; K21.9 Gastro-esophageal reflux disease without esophagitis; Z3A.28 28 weeks gestation of pregnancy
CPT/HCPCS: 99214; G0463

== ENCOUNTER 2025-04-15 08:33 | Outpatient (AMB) | payer MEDICAID, SELFPAY ==
[2025-04-15 08:45] VITALS: BP 124/74; PULSE 83; RESP 16; TEMP 36.3; O2SAT 97; BMI 33.3
--- NOTE | 2025-04-15 08:45 | OBCLNT_ITS ---
Vital Signs 04/15/25 08:45 Height 1.68 m Height Method Stated Weight 93.894 kg Weight Measurement Method Standing Scale BMI 33.3 BP 124/74 Blood Pressure Source Automatic Cuff Blood Pressure Location Left Upper Arm Position Sitting Respiration 16 Pulse 83 Pulse Source Monitor Temp 97.3 F Temp Source Oral Pulse Oximetry (%) 97 Oxygen Delivery Method Room Air Allergies/Home Meds Allergies & Medications Allergies NKA* Allergy (Uncoded 04/15/25 08:46) Medication Reconciliation vit no.95-ferrous fumarate 28 mg-folic acid 800 mcg tablet () 1 tab PO QDAY 11/20/24 [History Confirmed 04/15/25] vitamins with calcium no.72-iron 27 mg-folic acid 1 mg tablet ( Vitamins Plus Low Iron) 1 tab PO QDAY 90 days #90 tabs 11/20/24 [Rx Confirmed 04/15/25] omeprazole 40 mg capsule,delayed release 40 mg PO QDAY 30 days #30 caps 03/31/25 [Rx Confirmed 04/15/25] Intake Visit Data Collection New Patient or Established: Established Patient (seen at [facility] within 3 years) Reason for Visit:: CARE Seen by Clinical Staff ONLY (RN/MA): No Rebrander Required: No Do You Feel Safe at Home: Yes Authorities Contacted: N/A PCP or OBGYN visit in last 3 months: Yes Hx Now: Yes Are you currently on any form of Control: No Pain Present Currently: No Pain Scale Used: Albright-Salter/Numerical Pain scale:: 0 Smoking Status Smoking Status: Never smoker Questionnaires Covid-19 Vaccine Questionnaire Has patient been vacinated for Covid-19 Have you been vacinated for Covid-19: Yes PHQ-9 PHQ-2 Over the last 2 weeks, how often have you been bothered by any of the following problems? 1. Little interest or pleasure in doing things: not at all 2. Feeling down, depressed, or hopeless: not at all Total score: 0 PHQ-9 3. Trouble falling or staying asleep, or sleeping too much: Not at all 4. Feeling tired or having little energy: Not at all 5. Poor appetite or overeating: Not at all 6. Feeling bad about yourself - or that you are a failure or have let yourself or your family down: Not at all 7. Trouble concentrating on things, such as reading the newspaper or watching television: Not at all 8. Moving or speaking so slowly that other people could have noticed? - Or the opposite - being so fidgety or restless that you have been moving around a lot more than usual: not at all 9. Thoughts that you would be better off or of hurting yourself in some way: Not at all Total score: 0 Source: Developed by Drs. Elmer Morrissey, Carla Garza, Maximino Roche and colleagues, with an educational kaylene from [employer]. 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-?-?-?-?-?- 14w [address] [facility], at 14w3d gestation, presents for routine care and lab review. No CTX/LOF/VB. FM not yet perceived. No WELLS/VS, Epig/RUQ pain. Reports ongoing nausea, persistent heada ches, new dizziness with near-syncope, and a unilateral nosebleed lasting ~30?40 min (resolved). Ultrasound: FHR 154 bpm, movement noted. Maternity genome test (02/20/2025): 21% f etal fraction, negative for trisomies, female fetus. Assessment & Plan: at 14w3d with intrauterine pregnanc y. Labs and ultrasound reassuring. 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 Patient complains of itching. Denies WELLS, VC, and epigastric pain. - Order bile acids - Return in 2 weeks - Benadryl for itching - Preeclampsia precautions - labor precautions MÓNICA Calculator Estimated Delivery Date Method Current WG Current Estimate 06/21/25 Ultrasound #1 30w 4d Other Estimates 06/18/25 LMP (Certain) 31w 0d Office Procedures OB Clinic LOC & Office Proc's Nursing/Assessment Patient Status: Established Patient OB Clinic Nursing Assessment: Medication Reconciliation, Update PMH in EMR and Vital Signs OB Clinic Coordination of Care: Complex Care and Chronic Disease 1-5, Consent,records obtained, informed consent, Education Simp Pt/Fam, Lab and Imaging orders, Results/Orders obtained and Staff clarify orders Special Needs: Heart tones Established Patient Charge Established Patient Point Assignment: 135 Established Patient Point Charge: EP Level 4 (120-155) Assessment & Plan Diagnosis / Problem List (1) GERD (gastroesophageal reflux disease): Status: Acute (2) Other specified diseases and conditions complicating : Status: Acute (3) Supervision of high risk , unspecified, third trimester: Status: Acute
== END 2025-04-15 09:13 | disposition home or self-care (01) ==
LOC: HODSOBC 08:33
PROVIDERS: Supervising Provider Obstetrics & Gynecology; Visit Provider Obstetrics & Gynecology
DX: O09.893 Supervision of other high risk pregnancies, third trimester (principal); O99.613 Diseases of the digestive system complicating pregnancy, third trimester; K21.9 Gastro-esophageal reflux disease without esophagitis; Z3A.30 30 weeks gestation of pregnancy
CPT/HCPCS: 99214; G0463

== ENCOUNTER 2025-04-29 10:32 | Outpatient (AMB) | payer MEDICAID, SELFPAY ==
--- NOTE | 2025-04-29 10:42 | AMB.OBVISIT ---
Vital Signs 04/29/25 10:43 Height 1.68 m Height Method Stated Weight 94.517 kg Weight Measurement Method Standing Scale BMI 33.5 BP 131/86 H Blood Pressure Source Automatic Cuff Blood Pressure Location Left Upper Arm Position Sitting Respiration 16 Pulse 100 Pulse Source Monitor Temp 97.2 F Temp Source Oral Pulse Oximetry (%) 98 Oxygen Delivery Method Room Air Allergies/Home Meds Allergies & Medications Allergies NKA* Allergy (Uncoded 04/29/25 10:43) Medication Reconciliation vit no.95-ferrous fumarate 28 mg-folic acid 800 mcg tablet () 1 tab PO QDAY 11/20/24 [History Confirmed 04/29/25] vitamins with calcium no.72-iron 27 mg-folic acid 1 mg tablet ( Vitamins Plus Low Iron) 1 tab PO QDAY 90 days #90 tabs 11/20/24 [Rx Confirmed 04/29/25] omeprazole 40 mg capsule,delayed release 40 mg PO QDAY 30 days #30 caps 03/31/25 [Rx Confirmed 04/29/25] Intake Visit Data Collection New Patient or Established: Established Patient (seen at [facility] within 3 years) Reason for Visit:: OBC Seen by Clinical Staff ONLY (RN/MA): No 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 1. Little interest or pleasure in doing things: not at all 2. Feeling down, depressed, or hopeless: not at all Total score: 0 PHQ-9 3. Trouble falling or staying asleep, or sleeping too much: Not at all 4. Feeling tired or having little energy: Not at all 5. Poor appetite or overeating: Not at all 6. Feeling bad about yourself - or that you are a failure or have let yourself or your family down: Not at all 7. Trouble concentrating on things, such as reading the newspaper or watching television: Not at all 8. Moving or speaking so slowly that other people could have noticed? - Or the opposite - being so fidgety or restless that you have been moving around a lot more than usual: not at all 9. Thoughts that you would be better off or of hurting yourself in some way: Not at all Total score: 0 If you checked off any problems, how difficult have these problems made it for you to do your work, take care of things at home, or get along with other people?: not difficult at all Source: Developed by Drs. Elmer Morrissey, Carla Garza, Maximino Roche and colleagues, with an educational kaylene from [employer]. 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 Past Medical History: No Hx Neurological Disorders, No Hx Hypothyroidism, No Hx Hyperthyroidism, No Hx Breast Cancer, No Hx Cardiac Disorders, Yes Hx Hypertension (mother,father, grandfather), No Hx Blood Disorders, Yes Hx Anemia, No Hx Gastrointestinal Disorders, No Hx Renal Disease, No Hx Deep Vein Thrombosis, No Hx Diabetes Mellitus Type 1 and No Hx Diabetes Mellitus Type 2 Care OB Visit Log OB Flowsheet Initial Weight: Not Recorded Date <del>?</del> EGA Weight BP Alb Glu CTX Pres Fundal ht FHR Mov Dilation Station Effacement Hx Notes Visit Note 12/24/24 <del>?</del> 14w 3d 154 active Kasia Feldman, at 14w3d gestation, presents for routine care and lab review. No CTX/LOF/VB. FM not yet perceived. No WELLS/VS, Epig/RUQ pain. Reports ongoing nausea, persistent headaches, new dizziness with near-syncope, and a unilateral nosebleed lasting ~30?40 min (resolved). Ultrasound: FHR 154 bpm, movement noted. Maternity genome test (02/20/2025): 21% fraction, negative for trisomies, female fetus. Assessment & Plan: at 14w3d with intrauterine . Labs and ultrasound reassuring. Schedule 20-week US at [facility] (01/26) Routine follow-up in 4 weeks Anticipate nausea to improve as she enters 2nd trimester Encourage hydration and frequent small meals (q4?5h) Monitor headaches; advise hydration [place] Miller on orthostatic dizziness?avoid standing alone, stay hydrated, eat frequently Educate on epistaxis care; monitor for recurrence Reinforce labor signs and healthy practices 04/15/25 <del>?</del> 30w 3d 93.894 kg 124/74 absent cephalic 31 145 active No contractions, LOF, VB and reports good FM. Patient complains of itching. Denies WELLS, VC, and epigastric pain. - Order bile acids - Return in 2 weeks - Benadryl for itching - Preeclampsia precautions - labor precautions 04/29/25 <del>?</del> 32w 3d 94.517 kg 131/86 absent cephalic 33 140 active Previous complaint of pruritus, now resolved, with bile acids at 1.4 (normal <10), ruling out cholestasis of . Patient reports persistent nocturnal pain in the upper abdominal area radiating to the back, potentially indicative of ureteral compression by the gravid uterus. Hemoglobin 11.3, A1c 5.0, and RPR non-reactive. movement reported as normal. Patient experiencing symptoms consistent with pruritic urticarial papules and plaques of (PUPPP), responding to intermittent Benadryl use. - Continue Benadryl as needed for itching - Increase water intake to alleviate upper abdominal pain - Follow up in 2 weeks MÓNICA Calculator Estimated Delivery Date Method Current WG Current Estimate 06/21/25 Ultrasound #1 32w 3d Other Estimates 06/18/25 LMP (Certain) 32w 6d Office Procedures OB Clinic LOC & Office Proc's Nursing/Assessment Patient Status: Established Patient OB Clinic Nursing Assessment: Medication Reconciliation, Update PMH in EMR and Vital Signs OB Clinic Coordination of Care: Education Complex Pt/Fam, Consent,records obtained, informed consent, Lab and Imaging orders and Staff clarify orders Special Needs: Heart tones Established Patient Charge Established Patient Point Assignment: 110 Established Patient Point Charge: EP Level 3 (80-115) Assessment & Plan Diagnosis / Problem List (1) Supervision of high risk , unspecified, third trimester: Status: Acute (2) GERD (gastroesophageal reflux disease): Status: Acute (3) Other specified diseases and conditions complicating : Status: Acute
[2025-04-29 10:43] VITALS: BP 131/86; PULSE 100; RESP 16; TEMP 36.2; O2SAT 98; BMI 33.5
== END 2025-04-29 11:10 | disposition home or self-care (01) ==
LOC: HODSOBC 10:32
PROVIDERS: Supervising Provider Obstetrics & Gynecology; Visit Provider Obstetrics & Gynecology
DX: O09.893 Supervision of other high risk pregnancies, third trimester (principal); O99.613 Diseases of the digestive system complicating pregnancy, third trimester; K21.9 Gastro-esophageal reflux disease without esophagitis; Z3A.32 32 weeks gestation of pregnancy
CPT/HCPCS: 99213; G0463

== ENCOUNTER 2025-05-13 10:05 | Outpatient (AMB) | payer MEDICAID, SELFPAY ==
[2025-05-13 10:27] VITALS: BP 125/78; PULSE 90; RESP 18; TEMP 36.5; O2SAT 97; BMI 34.0
--- NOTE | 2025-05-13 10:27 | OBCLNT_ITS ---
Vital Signs 05/13/25 10:27 Height 1.68 m Height Method Stated Weight 96.162 kg Weight Measurement Method Standing Scale BMI 34.0 BP 125/78 Blood Pressure Source Automatic Cuff Blood Pressure Location Left Upper Arm Position Sitting Respiration 18 Pulse 90 Pulse Source Monitor Temp 97.7 F Temp Source Oral Pulse Oximetry (%) 97 Oxygen Delivery Method Room Air Allergies/Home Meds Allergies & Medications Allergies NKA* Allergy (Uncoded 05/13/25 10:29) Medication Reconciliation vit no.95-ferrous fumarate 28 mg-folic acid 800 mcg tablet () 1 tab PO QDAY 11/20/24 [History Confirmed 05/13/25] vitamins with calcium no.72-iron 27 mg-folic acid 1 mg tablet ( Vitamins Plus Low Iron) 1 tab PO QDAY 90 days #90 tabs 11/20/24 [Rx Confirmed 05/13/25] omeprazole 40 mg capsule,delayed release 40 mg PO QDAY 30 days #30 caps 03/31/25 [Rx Confirmed 05/13/25] Intake Visit Data Collection New Patient or Established: Established Patient (seen at [facility] within 3 years) Reason for Visit:: CARE Seen by Clinical Staff ONLY (RN/MA): No Medical Insurance Verifier Required: No Do You Feel Safe at Home: Yes Authorities Contacted: N/A PCP or OBGYN visit in last 3 months: Yes Hx Now: Yes Are you currently on any form of Control: No Pain Present Currently: No Pain Scale Used: Albright-Salter/Numerical Pain scale:: 0 Smoking Status Smoking Status: Never smoker Questionnaires Covid-19 Vaccine Questionnaire Has patient been vacinated for Covid-19 Have you been vacinated for Covid-19: Yes PHQ-9 PHQ-2 Over the last 2 weeks, how often have you been bothered by any of the following problems? 1. Little interest or pleasure in doing things: not at all 2. Feeling down, depressed, or hopeless: not at all Total score: 0 PHQ-9 3. Trouble falling or staying asleep, or sleeping too much: Not at all 4. Feeling tired or having little energy: Not at all 5. Poor appetite or overeating: Not at all 6. Feeling bad about yourself - or that you are a failure or have let yourself or your family down: Not at all 7. Trouble concentrating on things, such as reading the newspaper or watching television: Not at all 8. Moving or speaking so slowly that other people could have noticed? - Or the opposite - being so fidgety or restless that you have been moving around a lot more than usual: not at all 9. Thoughts that you would be better off or of hurting yourself in some way: Not at all Total score: 0 Source: Developed by Drs. Elmer Morrissey, Carla Garza, Maximino Roche and colleagues, with an educational kaylene from [employer]. 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-?- 14w [address]d [address] becca Feldman, at 14w3d gestation, presents for routine care and lab review. No CTX/LOF/VB. FM not yet perceived. No WELLS/VS, Epig/RUQ pain. Reports ongoing nausea, persistent heada ches, new dizziness with near-syncope, and a unilateral nosebleed lasting ~30?40 min (resolved). Ultrasound: FHR 154 bpm, movement noted. Maternity genome test (02/20/2025): 21% f etal fraction, negative for trisomies, female fetus. Assessment & Plan: at 14w3d with intrauterine pregnanc y. Labs and ultrasound reassuring. 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 Denies WELLS, VC, and epigastric pain. - Low energy - Pelvic pain - Occurs when lifting legs or walkin g - Described as sore - Located in the lower pelvic area - Order one-hour glucose tolerance test - Recommend elastic belly band for round ligament pain - Sleep on side with pillow behind shoul angelica, preferably left side - Follow up in 4 weeks 04/15/25 -?-?-?-?-?-?--?-?-?-?-?-?- 30w 3d 93.894 kg 124/74 absent cephalic 31 145 active No contractions, LOF, VB and reports good FM. Patient complains of itching. Denies WELLS, VC, and epigastric pain. - Order bile acids - Return in 2 weeks - Benadryl for itching - Preeclampsia precautions - labor precautions 04/29/25 -?-?-?-?-?-?-?-?-?-?-?-?- 32w 3d 94.517 kg 131/86 absent cephalic 33 140 active Previous complaint of pruritus, now resolved, with bile acids at 1.4 (normal <10), ruling out choles tasis of . Patient reports persistent nocturnal pain in the upper abdominal area radiating to the back, potentially indicative of ureteral compression by the gravid uterus. Hemoglobin 11.3, A1c 5.0, and RPR non- reactive. movement reported as normal. Patient experiencing symptoms consistent with pruritic urticarial papules and plaques of (PUPPP), responding to intermittent Benadryl use. - Continue Benadryl as needed for itching - Increase water intake to alleviate upp er abdominal pain - Follow up in 2 weeks 05/13/25 -?-?-?-?-?-?-?-?-?-?-?-?- 34w 3d 96.162 kg 125/78 occasional cephalic 34 145 active - Persistent pruritus - Taking Benadryl for relief - Reports some improvement with medi cation - Upper abdominal and flank pain - Ongoing, but intermittent - Occurs every 15-20 minutes - Episodes last less than an hour - Continue Brittnee dryl for itching - Monitor abdominal pain; if it lasts lo nger than 1 hour, patient should go to the hospital for monitoring of potential contractions - heart rate check performed: 143 bpm, noted as normal - Ultrasound to be performed (pending in surance verification) MÓNICA Calculator Estimated Delivery Date Method Current WG Current Estimate 06/21/25 Ultrasound #1 34w 3d Other Estimates 06/18/25 LMP (Certain) 34w 6d Office Procedures OB Clinic LOC & Office Proc's Nursing/Assessment Patient Status: Established Patient OB Clinic Nursing Assessment: Medication Reconciliation, Update PMH in EMR and Vital Signs OB Clinic Coordination of Care: Complex Care and Chronic Disease 1-5, Consent,records obtained, informed consent, Education Simp Pt/Fam, 1 Ins Authorization, Lab and Imaging orders, Results/Orders obtained and Staff clarify orders Special Needs: Heart tones Established Patient Charge Established Patient Point Assignment: 150 Established Patient Point Charge: EP Level 4 (120-155) Assessment & Plan Diagnosis / Problem List (1) Uterine size date discrepancy: Status: Acute (2) Supervision of high risk , unspecified, third trimester: Status: Acute Plan Problem List - , third trimester - Pruritus - Abdominal pain - Edema Assessment at 34 weeks 3 days gestation presenting for routine visit. Patient reports ongoing pruritus, managed with Benadryl. Intermittent upper abdominal and flank pain persists, occurring every 15-20 minutes, particularly noticeable in the past week. No signs of labor noted, but patient advised to monitor pain duration. heart rate auscultated at 143 bpm, within normal limits. Patient reports feeling bloated and experiencing fluid retention. Recent labs (04/16/2025) show hemoglobin 11.3, platelets 179, A1c 5.0, RPR non-reactive, and bilirubin 1.4. Plan - Continue Benadryl for itching - Monitor abdominal pain; if it lasts longer than 1 hour, patient should go to the hospital for monitoring of potential contractions - heart rate check performed: 143 bpm, noted as normal - Ultrasound to be performed (pending insurance verification) 1. Progress Reviewed gestational age, growth, and heart rate. Planned frequent visits (every 2 weeks until 36 weeks, then weekly). 2. Instructed patient to monitor movements and report decreases immediately. 3. Testing Counseled on routine third-trimester labs per guidelines. Discussed potential need for ultrasound or monitoring based on risk factors. 4. Preeclampsia Precaution Educated on preeclampsia signs: severe headache, vision changes, right upper quadrant pain, sudden swelling. Advised urgent reporting of symptoms and discussed blood pressure monitoring if high risk. 5. Labor Precautions Reviewed labor signs: regular contractions, pelvic pressure, back pain, bleeding, or fluid leakage. Instructed to seek immediate care for these symptoms. 6. Lifestyle and Delivery Preparation Reinforced vitamins, nutrition, and safe activity. Discussed plan, pain management, and . Advised on labor preparation (e.g., hospital bag) and expectations. 7. Psychosocial Support Assessed emotional well-being and offered resources for mental health or parenting support.
== END 2025-05-13 10:45 | disposition home or self-care (01) ==
LOC: HODSOBC 10:05
PROVIDERS: Supervising Provider Obstetrics & Gynecology; Visit Provider Obstetrics & Gynecology
DX: O09.893 Supervision of other high risk pregnancies, third trimester (principal); O26.843 Uterine size-date discrepancy, third trimester; O26.893 Other specified pregnancy related conditions, third trimester; L29.9 Pruritus, unspecified; Z3A.34 34 weeks gestation of pregnancy
CPT/HCPCS: 99214; G0463

== ENCOUNTER → 2025-05-15 | Outpatient (CLI) | payer MEDICAID, SELFPAY ==
--- NOTE | 2025-05-15 08:37 | XR_ITS ---
Examination: Complete OB ultrasound greater than 14 weeks Date and time of exam: May 15, 2025 0852 hours INDICATIONS: Abdominal cramping beginning one week ago, diagnosis size dates discrepancy Findings: Viable intrauterine single fetus with single amniotic sac presentation cephalic spine maternal right Cardiac motion 133 BPM Placenta anterior grade 1 Umbilical cord insertion seen Amniotic fluid index 5.8 cm Cervix 4.9 cm closed Right ovary 3.5 cm arterial flow. Left ovary 3.2 cm arterial flow. Composite estimated gestational age based on BPD, head circumference, abdominal circumference, femur length is 34 weeks 5 days Estimated weight 2466 g. Survey of intracranial anatomy, spinal anatomy, abdominal anatomy, four-chamber heart performed with no abnormalities identified. Impression: Viable intrauterine gestation cephalic presentation.
== END | disposition home or self-care (01) ==
PROVIDERS: Referring Provider Obstetrics & Gynecology; Visit Provider Obstetrics & Gynecology
DX: O26.849 Uterine size-date discrepancy, unspecified trimester (principal); O09.93 Supervision of high risk pregnancy, unspecified, third trimester; Z3A.34 34 weeks gestation of pregnancy
CPT/HCPCS: 76805

== ENCOUNTER 2025-05-20 08:17 | Outpatient (AMB) | payer MEDICAID, SELFPAY ==
[2025-05-20 08:22] VITALS: BP 121/77; PULSE 77; RESP 16; TEMP 36.2; O2SAT 98; BMI 33.9
--- NOTE | 2025-05-20 08:22 | OBCLNT_ITS ---
Vital Signs 05/20/25 08:22 Height 1.68 m Height Method Stated Weight 95.708 kg Weight Measurement Method Standing Scale BMI 33.9 BP 121/77 Blood Pressure Source Automatic Cuff Blood Pressure Location Left Upper Arm Position Sitting Respiration 16 Pulse 77 Pulse Source Monitor Temp 97.2 F Temp Source Oral Pulse Oximetry (%) 98 Oxygen Delivery Method Room Air Allergies/Home Meds Allergies & Medications Allergies NKA* Allergy (Uncoded 05/20/25 08:23) Medication Reconciliation vit no.95-ferrous fumarate 28 mg-folic acid 800 mcg tablet () 1 tab PO QDAY 11/20/24 [History Confirmed 05/20/25] vitamins with calcium no.72-iron 27 mg-folic acid 1 mg tablet ( Vitamins Plus Low Iron) 1 tab PO QDAY 90 days #90 tabs 11/20/24 [Rx Confirmed 05/20/25] omeprazole 40 mg capsule,delayed release 40 mg PO QDAY 30 days #30 caps 03/31/25 [Rx Confirmed 05/20/25] vits no.126-ferrous fum 28 mg iron-folic acid 800 mcg tablet (Classic ) 1 tab PO QDAY 90 days #90 tabs 05/20/25 [Rx] Intake Visit Data Collection New Patient or Established: Established Patient (seen at [facility] within 3 years) Reason for Visit:: OBC Seen by Clinical Staff ONLY (RN/MA): No Cad Operator Required: No Do You Feel Safe at Home: Yes Authorities Contacted: N/A PCP or OBGYN visit in last 3 months: Yes Date of Last PCP or OBGYN visit: 05/13/25 Hx Now: Yes Are you currently on any form of Control: No Pain Present Currently: No Pain Scale Used: Albright-Salter/Numerical Pain scale:: 0 Smoking Status Smoking Status: Never smoker Questionnaires Covid-19 Vaccine Questionnaire Has patient been vacinated for Covid-19 Have you been vacinated for Covid-19: No PHQ-9 PHQ-2 Over the last 2 weeks, how often have you been bothered by any of the following problems? 1. Little interest or pleasure in doing things: not at all 2. Feeling down, depressed, or hopeless: not at all Total score: 0 PHQ-9 3. Trouble falling or staying asleep, or sleeping too much: Not at all 4. Feeling tired or having little energy: Not at all 5. Poor appetite or overeating: Not at all 6. Feeling bad about yourself - or that you are a failure or have let yourself or your family down: Not at all 7. Trouble concentrating on things, such as reading the newspaper or watching television: Not at all 8. Moving or speaking so slowly that other people could have noticed? - Or the opposite - being so fidgety or restless that you have been moving around a lot more than usual: not at all 9. Thoughts that you would be better off or of hurting yourself in some way: Not at all Total score: 0 If you checked off any problems, how difficult have these problems made it for you to do your work, take care of things at home, or get along with other people?: not difficult at all Source: Developed by Drs. Elmer Morrissey, Carla Garza, Maximino Roche and colleagues, with an educational kaylene from [employer]. 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: Past Medical History Past Medical History: No Hx Neurological Disorders, No Hx Hypothyroidism, No Hx Hyperthyroidism, No Hx Breast Cancer, No Hx Cardiac Disorders, Yes Hx Hypertension (mother,father, grandfather), No Hx Blood Disorders, Yes Hx Anemia, No Hx Gastrointestinal Disorders, No Hx Renal Disease, No Hx Deep Vein Thrombosis, No Hx Diabetes Mellitus Type 1 and No Hx Diabetes Mellitus Type 2 Care OB Visit Log OB Flowsheet Initial Weight: Not Recorded Date -?-?-?-?-?-?-?-?-?-?-?-?- EGA Weight BP Alb Glu CTX Pres Fundal ht FHR Mov Dilation Station Effacement Hx Notes Visit Note 12/24/24 -?-?-?-?-?-?-?-?-?-?-?-?- 14w [address]d [address] becca Feldman, at 14w3d gestation, presents for routine care and lab review. No CTX/LOF/VB. FM not yet perceived. No WELLS/VS, Epig/RUQ pain. Reports ongoing nausea, persistent heada ches, new dizziness with near-syncope, and a unilateral nosebleed lasting ~30?40 min (resolved). Ultrasound: FHR 154 bpm, movement noted. Maternity genome test (02/20/2025): 21% f etal fraction, negative for trisomies, female fetus. Assessment & Plan: at 14w3d with intrauterine pregnanc y. Labs and ultrasound reassuring. Schedule 20-week US at [facility] (01/26) Routine follow-up in 4 weeks Anticipate nausea to improve as she ente rs 2nd trimester Encourage hydration and frequent small m eals (q4?5h) Monitor headaches; advise hydration Fur Scraper on orthostatic dizziness?avoid s tanding alone, stay hydrated, eat frequently Educate on epistaxis care; monitor for r ecurrence Reinforce labor signs and healthy practice s 03/04/25 -?-?-?-?-?-?-?-?-?-?-?-?- 24w 3d 91.229 kg 112/76 absent unknown 24 138 active Patient reports good FM. Denies WELLS, VC, and epigastric pain. - Low energy - Pelvic pain - Occurs when lifting legs or walkin g - Described as sore - Located in the lower pelvic area - Order one-hour glucose tolerance test - Recommend elastic belly band for round ligament pain - Sleep on side with pillow behind shoul angelica, preferably left side - Follow up in 4 weeks 04/15/25 -?-?-?-?-?-?-?-?-?-?-?-?- 30w 3d 93.894 kg 124/74 absent cephalic 31 145 active No contractions, LOF, VB and reports good FM. Patient complains of itching. Denies WELLS, VC, and epigastric pain. - Order bile acids - Return in 2 weeks - Benadryl for itching - Preeclampsia precautions - labor precautions 04/29/25 -?-?-?-?-?-?-?-?-?-?-?-?- 32w 3d 94.517 kg 131/86 absent cephalic 33 140 active Previous complaint of pruritus, now resolved, with bile acids at 1.4 (normal <10), ruling out cholestasis of . Patient reports persistent nocturnal pain in the upper abdominal area radiating to the back, potentially indicative of ureteral compression by the gravid uterus. Hemoglobin 11.3, A1c 5.0, and RPR non- reactive. movement reported as normal. Patient experiencing symptoms consistent with pruritic urticarial papules and plaques of (PUPPP), responding to intermittent Benadryl use. - Continue Benadryl as needed for itching - Increase water intake to alleviate upp er abdominal pain - Follow up in 2 weeks 05/13/25 -?-?-?-?-?-?-?-?-?-?-?-?- 34w 3d 96.162 kg 125/78 occasional cephalic 34 145 active - Persistent pruritus - Taking Benadryl for relief - Reports some improvement with medi cation - Upper abdominal and flank pain - Ongoing, but intermittent - Occurs every 15-20 minutes - Episodes last less than an hour - Continue Brittnee dryl for itching - Monitor abdominal pain; if it lasts lo nger than 1 hour, patient should go to the hospital for monitoring of potential contractions - heart rate check performed: 143 bpm, noted as normal - Ultrasound to be performed (pending in surance verification) 05/20/25 -?-?-?-?-?-?-?-?-?-?-?-?- 35w 3d 95.708 kg 121/77 occasional cephalic 36 145 active - Recent ultrasound on 05/15/2025 showed: - Fetus measuring 34 weeks and 5 days, consistent with dates - Amniotic Fluid Index (MATIAS) of 5.8 cm , borderline low - Cervical length 4.9 cm - heart rate 133 bpm - Anterior placenta - Patient reports no specific complaints or symptoms - Adherence to vitamins: - Patient requested refill of vitamins - Reports issue with pharmacy referral process - Repeat ultrasound for MATIAS measurement in one week at labor and delivery, 4th floor of the hospital - Patient to go to labor and delivery du ring morning hours for the ultrasound - Clinician to call labor and delivery t o place the order for the ultrasound - New prescription for vitamins to be sent to [facility] pharmacy - Follow-up appointment in one week - Potential delivery at 37 to 38 weeks i f fluid levels remain low MÓNICA Calculator Estimated Delivery Date Method Current WG Current Estimate 06/21/25 Ultrasound #1 35w 4d Other Estimates 06/18/25 LMP (Certain) 36w 0d Office Procedures OBC Clinic LOC & Office Proc's Nursing/Assessment Patient Status: Established Patient OB Clinic Nursing Assessment: Medication Reconciliation, Update PMH in EMR and Vital Signs OB Clinic Coordination of Care: Education Complex Pt/Fam, Consent,records obtained, informed consent, Lab and Imaging orders, Results/Orders obtained and Staff clarify orders Special Needs: Heart tones Established Patient Charge Established Patient Point Assignment: 115 Established Patient Point Charge: EP Level 3 (80-115) Assessment & Plan Diagnosis / Problem List (1) Uterine size date discrepancy: Status: Acute (2) Supervision of high risk , unspecified, third trimester: Status: Acute (3) GERD (gastroesophageal reflux disease): Status: Acute Plan Problem List - , third trimester - Oligohydramnios, borderline Assessment 3 para 2 at 35 weeks and 3 days gestation. Recent ultrasound on 05/15/2025 showed fetus measuring 34 weeks and 5 days, consistent with dates. Amniotic fluid index (MATIAS) borderline at 5.4 cm (lower limit of normal is 5 cm), indicating potential oligohydramnios. Cervical length 4.9 cm. cardiac motion present at 133 bpm. Anterior placenta noted. All other ultrasound findings within normal limits. Plan - Repeat ultrasound for MATIAS measurement in one week at labor and delivery, 4th floor of the hospital - Patient to go to labor and delivery during morning hours for the ultrasound - Clinician to call labor and delivery to place the order for the ultrasound - New prescription for vitamins to be sent to [facility] pharmacy - Follow-up appointment in one week - Potential delivery at 37 to 38 weeks if fluid levels remain low 1. Progress Reviewed gestational age, growth, and heart rate. She planned frequent visits (every 2 weeks until 36 weeks, then weekly). 2. Instructed patient to monitor movements and report decreases immediately. 3. Testing She counseled on routine third-trimester labs per guidelines. She discussed potential need for ultrasound or monitoring based on risk factors. 4. Preeclampsia Precaution She educated on preeclampsia signs: severe headache, vision changes, right upper quadrant pain, sudden swelling. She advised urgent reporting of symptoms and discussed blood pressure monitoring if high risk. 5. Labor Precautions She reviewed labor signs: regular contractions, pelvic pressure, back pain, bleeding, or fluid leakage. She instructed to seek immediate care for these symptoms. 6. Lifestyle and Delivery Preparation She reinforced vitamins, nutrition, and safe activity. She discussed plan, pain management, and . She advised on labor preparation (e.g., hospital bag) and expectations. 7. Psychosocial Support She assessed emotional well-being and offered resources for mental health or parenting support.
== END 2025-05-20 08:58 | disposition home or self-care (01) ==
LOC: HODSOBC 08:17
PROVIDERS: Supervising Provider Obstetrics & Gynecology; Visit Provider Obstetrics & Gynecology
DX: O09.893 Supervision of other high risk pregnancies, third trimester (principal); O26.843 Uterine size-date discrepancy, third trimester; O41.03X0 Oligohydramnios, third trimester, not applicable or unspecified; O99.613 Diseases of the digestive system complicating pregnancy, third trimester; K21.9 Gastro-esophageal reflux disease without esophagitis; Z3A.35 35 weeks gestation of pregnancy
CPT/HCPCS: 99213; G0463

== ENCOUNTER 2025-05-22 11:13 | Outpatient (CLI) | payer MEDICAID, SELFPAY ==
[2025-05-22 11:28] VITALS: BP 122/75; PULSE 94
--- NOTE | 2025-05-22 11:36 | XR_ITS ---
Examination: Biophysical profile, ultrasound Date and time of exam: May 22, 2025, 1149 hours INDICATIONS: Low amniotic fluid index 5.8 cm on ultrasound study 05/15/2025 Technique: Multiple transabdominal sonographic images of the pelvis abdomen obtained. Attention is directed to the breathing movement, gross body movement, amniotic fluid volume and tone. Findings: Amniotic fluid index 10.5 cm Total biophysical profile is 8 of 8. breathing movement is 2. Gross body movement is 2. tone is 2. Qualitative amniotic fluid volume is 2 Impression: Biophysical profile is 8 of 8.
[2025-05-22 12:07] VITALS: BP 122/75; PULSE 94; RESP 16; RESP 98; TEMP 37.1; BMI 34.4
== END 2025-05-22 12:40 | disposition home or self-care (01) ==
LOC: S4S1 11:14 → S4SX 11:15
PROVIDERS: Referring Provider Obstetrics & Gynecology; Visit Provider Obstetrics & Gynecology
DX: Z34.90 Encounter for supervision of normal pregnancy, unspecified, unspecified trimester (principal); Z36.9 Encounter for antenatal screening, unspecified; Z3A.00 Weeks of gestation of pregnancy not specified
CPT/HCPCS: 59025; 76819

== ENCOUNTER 2025-05-27 08:49 | Outpatient (AMB) | payer MEDICAID, SELFPAY ==
[2025-05-27 08:53] VITALS: BP 130/84; PULSE 88; RESP 16; TEMP 36.6; O2SAT 97; BMI 34.6
--- NOTE | 2025-05-27 08:53 | OBCLNT_ITS ---
Vital Signs 05/27/25 08:53 Height 1.68 m Height Method Stated Weight 97.692 kg Weight Measurement Method Standing Scale BMI 34.6 BP 130/84 Blood Pressure Source Automatic Cuff Blood Pressure Location Left Upper Arm Position Sitting Respiration 16 Pulse 88 Pulse Source Monitor Temp 97.8 F Temp Source Oral Pulse Oximetry (%) 97 Oxygen Delivery Method Room Air Allergies/Home Meds Allergies & Medications Allergies No Known Allergies Allergy (Verified 06/12/25 10:07) Medication Reconciliation vit no.95-ferrous fumarate 28 mg-folic acid 800 mcg tablet () 1 tab PO QDAY 11/20/24 [History Confirmed 06/05/25] vitamins with calcium no.72-iron 27 mg-folic acid 1 mg tablet ( Vitamins Plus Low Iron) 1 tab PO QDAY 90 days #90 tabs 11/20/24 [Rx Confirmed 06/05/25] omeprazole 40 mg capsule,delayed release 40 mg PO QDAY 30 days #30 caps 03/31/25 [Rx Confirmed 06/05/25] vits no.126-ferrous fum 28 mg iron-folic acid 800 mcg tablet (Classic ) 1 tab PO QDAY 90 days #90 tabs 05/20/25 [Rx Confirmed 06/05/25] Intake Visit Data Collection New Patient or Established: Established Patient (seen at [facility] within 3 years) Reason for Visit:: CARE Seen by Clinical Staff ONLY (RN/MA): No Lease Examiner Required: No Do You Feel Safe at Home: Yes Authorities Contacted: N/A PCP or OBGYN visit in last 3 months: Yes Hx Now: Yes Are you currently on any form of Control: No Pain Present Currently: Yes Pain Location: Head Pain Scale Used: Albright-Salter/Numerical Pain scale:: 5 Smoking Status Smoking Status: Never smoker Questionnaires Covid-19 Vaccine Questionnaire Has patient been vacinated for Covid-19 Have you been vacinated for Covid-19: Yes PHQ-9 PHQ-2 Over the last 2 weeks, how often have you been bothered by any of the following problems? 1. Little interest or pleasure in doing things: not at all 2. Feeling down, depressed, or hopeless: not at all Total score: 0 PHQ-9 3. Trouble falling or staying asleep, or sleeping too much: Not at all 4. Feeling tired or having little energy: Not at all 5. Poor appetite or overeating: Not at all 6. Feeling bad about yourself - or that you are a failure or have let yourself or your family down: Not at all 7. Trouble concentrating on things, such as reading the newspaper or watching television: Not at all 8. Moving or speaking so slowly that other people could have noticed? - Or the opposite - being so fidgety or restless that you have been moving around a lot more than usual: not at all 9. Thoughts that you would be better off or of hurting yourself in some way: Not at all Total score: 0 Source: Developed by Drs. Elmer Morrissey, Carla Garza, Maximino Roche and colleagues, with an educational kaylene from [employer]. 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: Past Medical History Past Medical History: No Hx Neurological Disorders, No Hx Hypothyroidism, No Hx Hyperthyroidism, No Hx Breast Cancer, No Hx Cardiac Disorders, Yes Hx Hypertension (mother,father, grandfather), No Hx Blood Disorders, Yes Hx Anemia, No Hx Gastrointestinal Disorders, No Hx Renal Disease, No Hx Deep Vein Thrombosis, No Hx Diabetes Mellitus Type 1 and No Hx Diabetes Mellitus Type 2 Care OB Visit Log OB Flowsheet Initial Weight: Not Recorded Date -?-?-?-?-?-?-?-?-?-?-?-?- EGA Weight BP Alb Glu CTX Pres Fundal ht FHR Mov Dilation Station Effacement Hx Notes Visit Note 12/24/24 -?-?-?-?-?-?-?-?-?-?-?-?- 14w [address]d [address] [facility]cca Feldman, at 14w3d gestation, presents for routine care and lab review. No CTX/LOF/VB. FM not yet perceived. No WELLS/VS, Epig/RUQ pain. Reports ongoing nausea, persistent heada ches, new dizziness with near-syncope, and a unilateral nosebleed lasting ~30?40 min (resolved). Ultrasound: FHR 154 bpm, movement noted. Maternity genome test (02/20/2025): 21% f etal fraction, negative for trisomies, female fetus. Assessment & Plan: at 14w3d with intrauterine pregnanc y. Labs and ultrasound reassuring. 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 Denies WELLS, VC, and epigastric pain. - Low energy - Pelvic pain - Occurs when lifting legs or walkin g - Described as sore - Located in the lower pelvic area - Order one-hour glucose tolerance test - Recommend elastic belly band for round ligament pain - Sleep on side with pillow behind shoul angelica, preferably left side - Follow up in 4 weeks 03/31/25 -?-?-?-?-?-?-?-?-?-?-?-?- 28w 2d 92.986 kg 125/82 absent cephalic 28 143 active - She reports severe acid reflux: - Worsening symptoms, especially at ni ght - Initially managed with Tums, but no longer effective - Causing sleep disturbance - Denies back pain - Denies bowel issues (diarrhea, constipation) - Prescribe omeprazole for acid r eflux - Continue vitamins - Follow up in 2 weeks - Recommend smaller, more frequent meals and avoiding hot or fatty foods to manage acid reflux 04/15/25 -?-?-?-?-?-?-?-?-?-?-?-?- 30w 3d 93.894 kg 124/74 absent cephalic 31 145 active No contractions, LOF, VB and reports good FM. Patient complains of itching. Denies WELLS, VC, and epigastric pain. - Order bile acids - Return in 2 weeks - Benadryl for itching - Preeclampsia precautions - labor precautions 04/29/25 -?-?-?-?-?-?-?-?-?-?-?-?- 32w 3d 94.517 kg 131/86 absent cephalic 33 140 active Previous complaint of pruritus, now resolved, with bile acids at 1.4 (normal <10), ruling out cholestasis of . Patient reports persistent nocturnal pain in the upper abdominal area radiating to the back, potentially indicative of ureteral compression by the gravid uterus. Hemoglobin 11.3, A1c 5.0, and RPR non- reactive. movement reported as normal. Patient experiencing symptoms consistent with pruritic urticarial papules and plaques of (PUPPP), responding to intermittent Benadryl use. - Continue Benadryl as needed for itching - Increase water intake to alleviate upp er abdominal pain - Follow up in 2 weeks 05/13/25 -?-?-?-?-?-?-?-?-?-?-?-?- 34w 3d 96.162 kg 125/78 occasional cephalic 34 145 active - Persistent pruritus - Taking Benadryl for relief - Reports some improvement with medi cation - Upper abdominal and flank pain - Ongoing, but intermittent - Occurs every 15-20 minutes - Episodes last less than an hour - Continue [place] dryl for itching - Monitor abdominal pain; if it lasts lo nger than 1 hour, patient should go to the hospital for monitoring of potential contractions - heart rate check performed: 143 bpm, noted as normal - Ultrasound to be performed (pending in surance verification) 05/20/25 -?-?-?-?-?-?-?-?-?-?-?-?- 35w 3d 95.708 kg 121/77 occasional cephalic 36 145 active - Recent ultrasound on 05/15/2025 showed: - Fetus measuring 34 weeks and 5 days, consistent with dates - Amniotic Fluid Index (MATIAS) of 5.8 cm , borderline low - Cervical length 4.9 cm - heart rate 133 bpm - Anterior placenta - Patient reports no specific complaints or symptoms - Adherence to vitamins: - Patient requested refill of vitamins - Reports issue with pharmacy referral process - Repeat ultrasound for MATIAS measurement in one week at labor and delivery, 4th floor of the hospital - Patient to go to labor and delivery ring morning hours for the ultrasound - Clinician to call labor and delivery t o place the order for the ultrasound - New prescription for vitamins to be sent to [facility] pharmacy - Follow-up appointment in one week - Potential delivery at 37 to 38 weeks i f fluid levels remain low 05/27/25 -?-?-?-?-?-?-?-?-?-?-?-?- 36w 3d 97.692 kg 130/84 absent cephalic 37 145 active - At her last appointment, patient had low amniotic fluid (MATIAS) and was sent for repeat testing, which showed improvement to 10.5. - Patient reports headache for the last 3 days. - Has not tried Tylenol or other medic ations for relief. - Patient reports clear vaginal discharg e. - Patient denies leaking of fluid or ble eding. - Patient reports baby is moving well. - Return Sunday morning at 9-10 AM for repeat amniotic fluid level check with Dr. Raphael at hospital - Take Tylenol 500mg for headache; if in effective, take second dose after 2 hours; if still no relief, return to hospital for IV medication - Follow up in clinic in one week - At 39 weeks gestation, perform membran e sweeping - Return to hospital immediately if any issues arise 06/12/25 -?-?-?-?-?-?-?-?-?-?-?-?- 38w 5d 98.656 kg 122/86 occasional cephalic 39 155 active - She had one occasion of low amniotic fluid (MATIAS) which has since resolved. - She requests a breast pump prescriptio n. - Her last MATIAS check was on May 31, approximately two weeks prior to this visit. - NST and BPP to be performed today, including MATIAS check and estimated weight - Ultrasound on 4th floor to assess amni otic fluid levels and weight - Follow-up appointment in one week - Cervical exam and membrane sweep to be performed at next visit after 39 weeks - Breast pump prescription to be provide d by Cris KRISHNAD Calculator Estimated Delivery Date Method Current WG Current Estimate 06/21/25 Ultrasound #1 39w 1d Other Estimates 06/18/25 LMP (Certain) 39w 4d Office Procedures OBC Clinic LOC & Office Proc's Nursing/Assessment Patient Status: Established Patient OB Clinic Nursing Assessment: Medication Reconciliation, Update PMH in EMR and Vital Signs OB Clinic Coordination of Care: Complex Care and Chronic Disease 1-5, Consent,records obtained, informed consent, Education Simp Pt/Fam, 1 Ins Authorization, Lab and Imaging orders, Results/Orders obtained and Staff clarify orders Special Needs: Heart tones Established Patient Charge Established Patient Point Assignment: 150 Established Patient Point Charge: EP Level 4 (120-155) Assessment & Plan Diagnosis / Problem List (1) Uterine size date discrepancy: Status: Acute (2) Supervision of high risk , unspecified, third trimester: Status: Acute (3) GERD (gastroesophageal reflux disease): Status: Acute (4) Other specified counseling: Status: Acute Plan Problem List - Headache - Oligohydramnios Assessment 36-week 3-day 3 para 1 patient presents for GBS culture with previously low amniotic fluid index (MATIAS) that has improved to 10.5 on repeat measurement. Patient reports 3-day history of headache and clear vaginal discharge. heart rate is normal at 145 bpm with good movement reported. The improved MATIAS suggests resolution of oligohydramnios, likely related to her maternal hydration status. Plan - Return Sunday morning at 9-10 AM for repeat amniotic fluid level check with Dr. Raphael at hospital - Take Tylenol 500mg for headache; if ineffective, take second dose after 2 hours; if still no relief, return to hospital for IV medication - Follow up in clinic in one week - At 39 weeks gestation, perform membrane sweeping - Return to hospital immediately if any issues arise 1. Progress Reviewed gestational age (36 weeks 3 days), growth, and heart rate (145 bpm normal). Planned frequent visits (follow-up scheduled for Sunday for amniotic fluid recheck, then back in one week). 2. Instructed patient to monitor movements and report decreases immediate ly. 3. Testing Counseled on routine third-trimester labs per guidelines (GBS culture performed). Discussed potential need for ultrasound or monitoring based on risk factors (amniotic fluid monitoring due to previous low MATIAS). 4. Preeclampsia Precaution Educated on preeclampsia signs: severe headache, vision changes, right upper quadrant pain, sudden swelling. Advised urgent reporting of symptoms and discussed blood pressure monitoring if high risk (patient counseled on headache management with Tylenol and to return if her symptoms persist). 5. Labor Precautions Reviewed labor signs: regular contractions, pelvic pressure, back pain, bleeding, or fluid leakage. Instructed to seek immediate care for these symptoms (patient advised to return for any issues). 6. Lifestyle and Delivery Preparation Reinforced vitamins, nutrition, and safe activity (counseled on adequate hydration for amniotic fluid maintenance). Discussed plan, pain management, and . Advised on labor preparation (e.g., hospital bag) and expectations (membrane sweeping planned at 39 weeks). 7. Psychosocial Support Assessed emotional well-being and offered resources for mental health or parenting support.
== END 2025-05-27 09:32 | disposition home or self-care (01) ==
LOC: HODSOBC 08:49
PROVIDERS: Supervising Provider Obstetrics & Gynecology; Visit Provider Obstetrics & Gynecology
DX: O09.893 Supervision of other high risk pregnancies, third trimester (principal); O26.843 Uterine size-date discrepancy, third trimester; O99.613 Diseases of the digestive system complicating pregnancy, third trimester; K21.9 Gastro-esophageal reflux disease without esophagitis; R51.9 Headache, unspecified; O99.891 Other specified diseases and conditions complicating pregnancy; O41.03X0 Oligohydramnios, third trimester, not applicable or unspecified; Z3A.36 36 weeks gestation of pregnancy
CPT/HCPCS: 99214; G0463

== ENCOUNTER 2025-05-31 10:01 | Outpatient (CLI) | payer MEDICAID, SELFPAY ==
[2025-05-31] VITALS (8 sets, daily range): BP systolic 124; BP diastolic 83; PULSE 71–86; RESP 18–98; TEMP 36.8; O2SAT 97–99; BMI 34.6
--- NOTE | 2025-05-31 10:32 | XR_ITS ---
Examination: age Limited Exam date and time: May 31, 2025, 10:44 AM Indications: Labor evaluation Findings: Viable intrauterine gestation Cardiac motion 155 BPM Amniotic fluid index 11.0 cm Impression: Amniotic fluid index 11.0 cm
== END 2025-05-31 11:10 | disposition home or self-care (01) ==
LOC: CNST 10:06 → S4SX 10:06
PROVIDERS: Referring Provider Obstetrics & Gynecology; Visit Provider Obstetrics & Gynecology
DX: Z34.83 Encounter for supervision of other normal pregnancy, third trimester (principal); Z36.9 Encounter for antenatal screening, unspecified; Z3A.37 37 weeks gestation of pregnancy
CPT/HCPCS: 59025; 76815

== ENCOUNTER 2025-06-05 13:25 | Outpatient (AMB) | payer MEDICAID, SELFPAY ==
[2025-06-05 13:45] VITALS: BP 127/86; PULSE 76; RESP 17; TEMP 36.6; O2SAT 97; BMI 35.4
--- NOTE | 2025-06-05 13:45 | AMB.OBVISIT ---
Vital Signs 06/05/25 13:45 Height 1.68 m Height Method Stated Weight 99.393 kg Weight Measurement Method Standing Scale BMI 35.4 BP 127/86 H Blood Pressure Source Automatic Cuff Blood Pressure Location Right Upper Arm Position Sitting Respiration 17 Pulse 76 Pulse Source Monitor Temp 97.9 F Temp Source Temporal Artery Scan Pulse Oximetry (%) 97 Oxygen Delivery Method Room Air Allergies/Home Meds Allergies & Medications Allergies No Known Allergies Allergy (Verified 06/19/25 09:56) Medication Reconciliation vit no.95-ferrous fumarate 28 mg-folic acid 800 mcg tablet () 1 tab PO QDAY 11/20/24 [History Confirmed 06/24/25] omeprazole 40 mg capsule,delayed release 40 mg PO QDAY 30 days #30 caps 03/31/25 [Rx Confirmed 06/24/25] Intake Visit Data Collection New Patient or Established: Established Patient (seen at [facility] within 3 years) Reason for Visit:: OBC Seen by Clinical Staff ONLY (RN/MA): No Dance Master Required: No Do You Feel Safe at Home: Yes Authorities Contacted: N/A PCP or OBGYN visit in last 3 months: Yes Date of Last PCP or OBGYN visit: 05/31/25 Hx Now: Yes Are you currently on any form of Control: No Pain Present Currently: No Pain Scale Used: Albright-Salter/Numerical Pain scale:: 0 Smoking Status Smoking Status: Never smoker Questionnaires Covid-19 Vaccine Questionnaire Has patient been vacinated for Covid-19 Have you been vacinated for Covid-19: Yes PHQ-9 PHQ-2 Over the last 2 weeks, how often have you been bothered by any of the following problems? 1. Little interest or pleasure in doing things: not at all 2. Feeling down, depressed, or hopeless: not at all Total score: 0 PHQ-9 3. Trouble falling or staying asleep, or sleeping too much: Not at all 4. Feeling tired or having little energy: Not at all 5. Poor appetite or overeating: Not at all 6. Feeling bad about yourself - or that you are a failure or have let yourself or your family down: Not at all 7. Trouble concentrating on things, such as reading the newspaper or watching television: Not at all 8. Moving or speaking so slowly that other people could have noticed? - Or the opposite - being so fidgety or restless that you have been moving around a lot more than usual: not at all 9. Thoughts that you would be better off or of hurting yourself in some way: Not at all Total score: 0 If you checked off any problems, how difficult have these problems made it for you to do your work, take care of things at home, or get along with other people?: not difficult at all Source: Developed by Drs. Elmer Morrissey, Carla Garza, Maximino Roche and colleagues, with an educational kaylene from [employer]. 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 Past Medical History: No Hx Neurological Disorders, No Hx Hypothyroidism, No Hx Hyperthyroidism, No Hx Breast Cancer, No Hx Cardiac Disorders, Yes Hx Hypertension (mother,father, grandfather), No Hx Blood Disorders, Yes Hx Anemia, No Hx Gastrointestinal Disorders, No Hx Renal Disease, No Hx Deep Vein Thrombosis, No Hx Diabetes Mellitus Type 1 and No Hx Diabetes Mellitus Type 2 Office Procedures OBC Clinic LOC & Office Proc's Nursing/Assessment Patient Status: Established Patient OB Clinic Nursing Assessment: Medication Reconciliation, Update PMH in EMR and Vital Signs OB Clinic Coordination of Care: Complex Care and Chronic Disease 1-5, Education Complex Pt/Fam, Consent,records obtained, informed consent, Lab and Imaging orders and Staff clarify orders Special Needs: Heart tones Established Patient Charge Established Patient Point Assignment: 135 Established Patient Point Charge: EP Level 4 (120-155) Assessment & Plan Diagnosis / Problem List (1) UTI (urinary tract infection): Status: Acute (2) -induced hypertension in third trimester: Status: Acute Plan Problem List - , third trimester - Headache - Nosebleed Assessment 37-year-old at 37 weeks 5 days gestation with ongoing headache, though preeclampsia workup has been negative. Patient reports round ligament pain due to stretching. Recent nosebleeds noted, which are considered normal for current conditions. heart rate is normal at 138-139 bpm. Recent ultrasound results are negative and within normal limits. Plan - Check cervix and sweep membranes at next visit at 39 weeks - Send for MATIAS (amniotic fluid index) ultrasound after next week's appointment - Follow up in one week - Patient advised to bounce on exercise ball to help baby's head descend - Patient advised to walk 15-20 minutes morning and evening - Patient advised to try spicy foods 1. Progress Reviewed gestational age (37 weeks and 5 days), growth (MATIAS increased from 5.8 to 10.5), and heart rate (138-139 bpm, normal). Planned frequent visits (weekly at this gestational age). 2. Instructed patient to monitor movements and report decreases immediately. 3. Testing Counseled on routine third-trimester labs per guidelines. Discussed potential need for ultrasound or monitoring based on risk factors (MATIAS monitoring planned for next week). 4. Preeclampsia Precaution Educated on preeclampsia signs: severe headache, vision changes, right upper quadrant pain, sudden swelling. Advised urgent reporting of symptoms and discussed blood pressure monitoring if high risk (preeclampsia workup confirmed negative). 5. Labor Precautions Reviewed labor signs: regular contractions, pelvic pressure, back pain, bleeding, or fluid leakage. Instructed to seek immediate care for these symptoms. 6. Lifestyle and Delivery Preparation Reinforced vitamins, nutrition, and safe activity. Discussed plan, pain management, and . Advised on labor preparation including natural methods to encourage labor onset (bouncing on exercise ball, walking 15-20 minutes morning and evening, spicy foods) and expectations. Planned cervical exam and membrane sweep at next visit (39 weeks). 7. Psychosocial Support Assessed emotional well-being and offered resources for mental health or parenting support.
== END 2025-06-05 14:05 | disposition home or self-care (01) ==
LOC: HODSOBC 13:25
PROVIDERS: Supervising Provider Obstetrics & Gynecology; Visit Provider Obstetrics & Gynecology
DX: O09.893 Supervision of other high risk pregnancies, third trimester (principal); O13.3 Gestational [pregnancy-induced] hypertension without significant proteinuria, third trimester; O23.43 Unspecified infection of urinary tract in pregnancy, third trimester; Z3A.37 37 weeks gestation of pregnancy
CPT/HCPCS: 99214; G0463

== ENCOUNTER 2025-06-12 09:49 | Outpatient (AMB) | payer MEDICAID, SELFPAY ==
[2025-06-12 10:04] VITALS: BP 122/86; PULSE 91; RESP 18; TEMP 36.4; O2SAT 98; BMI 34.9
--- NOTE | 2025-06-12 10:04 | OBCLNT_ITS ---
Vital Signs 06/12/25 10:04 Height 1.68 m Height Method Stated Weight 98.656 kg Weight Measurement Method Standing Scale BMI 34.9 BP 122/86 H Blood Pressure Source Automatic Cuff Blood Pressure Location Left Upper Arm Position Sitting Respiration 18 Pulse 91 Pulse Source Monitor Temp 97.6 F Temp Source Oral Pulse Oximetry (%) 98 Oxygen Delivery Method Room Air Allergies/Home Meds Allergies & Medications Allergies No Known Allergies Allergy (Verified 06/12/25 10:07) Intake Visit Data Collection New Patient or Established: Established Patient (seen at [facility] within 3 years) Reason for Visit:: OBC Seen by Clinical Staff ONLY (RN/MA): No Calibration Specialist Required: No Do You Feel Safe at Home: Yes Authorities Contacted: N/A PCP or OBGYN visit in last 3 months: Yes Date of Last PCP or OBGYN visit: 06/05/25 Hx Now: Yes Are you currently on any form of Control: No Pain Present Currently: No Pain Scale Used: Albright-Salter/Numerical Pain scale:: 0 Smoking Status Smoking Status: Never smoker Questionnaires Covid-19 Vaccine Questionnaire Has patient been vacinated for Covid-19 Have you been vacinated for Covid-19: Yes PHQ-9 PHQ-2 Over the last 2 weeks, how often have you been bothered by any of the following problems? 1. Little interest or pleasure in doing things: not at all 2. Feeling down, depressed, or hopeless: not at all Total score: 0 PHQ-9 3. Trouble falling or staying asleep, or sleeping too much: Not at all 4. Feeling tired or having little energy: Not at all 5. Poor appetite or overeating: Not at all 6. Feeling bad about yourself - or that you are a failure or have let yourself or your family down: Not at all 7. Trouble concentrating on things, such as reading the newspaper or watching television: Not at all 8. Moving or speaking so slowly that other people could have noticed? - Or the opposite - being so fidgety or restless that you have been moving around a lot more than usual: not at all 9. Thoughts that you would be better off or of hurting yourself in some way: Not at all Total score: 0 If you checked off any problems, how difficult have these problems made it for you to do your work, take care of things at home, or get along with other people?: not difficult at all Source: Developed by Drs. Elmer Morrissey, aCrla Garza, Maximino Roche and colleagues, with an educational kaylene from [employer]. 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-?-?-?-?-?-?-?-?-?- 14w [address]d [address] becca Feldman, at 14w3d gestation, presents for routine care and lab review. No CTX/LOF/VB. FM not yet perceived. No WELLS/VS, Epig/RUQ pain. Reports ongoing nausea, persistent heada ches, new dizziness with near-syncope, and a unilateral nosebleed lasting ~30?40 min (resolved). Ultrasound: FHR 154 bpm, movement noted. Maternity genome test (02/20/2025): 21% f etal fraction, negative for trisomies, female fetus. Assessment & Plan: at 14w3d with intrauterine pregnanc y. Labs and ultrasound reassuring. 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 Denies WELLS, VC, and epigastric pain. - Low energy - Pelvic pain - Occurs when lifting legs or walkin g - Described as sore - Located in the lower pelvic area - Order one-hour glucose tolerance test - Recommend elastic belly band for round ligament pain - Sleep on side with pillow behind shoul angelica, preferably left side - Follow up in 4 weeks 03/31/25 -?-?-?-?-?-?-?-?-?-?-?-?- 28w 2d 92.986 kg 125/82 absent cephalic 28 143 active - She reports severe acid reflux: - Worsening symptoms, especially at ni ght - Initially managed with Tums, but no longer effective - Causing sleep disturbance - Denies back pain - Denies bowel issues (diarrhea, constipation) - Prescribe omeprazole for acid reflux - Continue vitamins - Follow up in 2 weeks - Recommend smaller, more frequent meals and avoiding hot or fatty foods to manage acid reflux 04/15/25 -?-?-?-?-?-?-?-?-?--?-?-?- 30w 3d 93.894 kg 124/74 absent cephalic 31 145 active No contractions, LOF, VB and reports good FM. Patient complains of itching. Denies WELLS, VC, and epigastric pain. - Order bile acids - Return in 2 weeks - Benadryl for itching - Preeclampsia precautions - labor precautions 04/29/25 -?-?-?-?-?-?-?-?-?-?-?-?- 32w 3d 94.517 kg 131/86 absent cephalic 33 140 active Previous complaint of pruritus, now resolved, with bile acids at 1.4 (normal <10), ruling out cholestasis of . Patient reports persistent nocturnal pain in the upper abdominal area radiating to the back, potentially indicative of ureteral compression by the gravid uterus. Hemoglobin 11.3, A1c 5.0, and RPR non- reactive. movement reported as normal. Patient experiencing symptoms consistent with pruritic urticarial papules and plaques of (PUPPP), responding to intermittent Benadryl use. - Continue Benadryl as needed for itching - Increase water intake to alleviate upp er abdominal pain - Follow up in 2 weeks 05/13/25 -?-?-?-?-?-?-?-?-?-?-?-?- 34w 3d 96.162 kg 125/78 occasional cephalic 34 145 active - Persistent pruritus - Taking Benadryl for relief - Reports some improvement with medi cation - Upper abdominal and flank pain - Ongoing, but intermittent - Occurs every 15-20 minutes - Episodes last less than an hour - Continue Brittnee dryl for itching - Monitor abdominal pain; if it lasts lo nger than 1 hour, patient should go to the hospital for monitoring of potential contractions - heart rate check performed: 143 bpm, noted as normal - Ultrasound to be performed (pending in surance verification) 05/20/25 -?-?-?-?-?-?-?-?-?-?-?-?- 35w 3d 95.708 kg 121/77 occasional cephalic 36 145 active - Recent ultrasou nd on 05/15/2025 showed: - Fetus measuring 34 weeks and 5 days, consistent with dates - Amniotic Fluid Index (MATIAS) of 5.8 cm , borderline low - Cervical length 4.9 cm - heart rate 133 bpm - Anterior placenta - Patient reports no specific complaints or symptoms - Adherence to vitamins: - Patient requested refill of vitamins - Reports issue with pharmacy referral process - Repeat ultrasound for MATIAS measurement in one week at labor and delivery, 4th floor of the hospital - Patient to go to labor and delivery du ring morning hours for the ultrasound - Clinician to call labor and delivery t o place the order for the ultrasound - New prescription for vitamins to be sent to [facility] pharmacy - Follow-up appointment in one week - Potential delivery at 37 to 38 weeks i f fluid levels remain low 06/12/25 -?-?-?-?-?-?-?-?-?-?-?-?- 38w 5d 98.656 kg 122/86 occasional cephalic 39 155 active - She had one occasion of low amniotic fluid (MATIAS) which has since resolved. - She requests a breast pump prescriptio n. - Her last MATIAS check was on May 31, approximately two weeks prior to this visit. - NST and BPP to be performed today, including MATIAS check and estimated weight - Ultrasound on 4th floor to assess amni otic fluid levels and weight - Follow-up appointment in one week - Cervical exam and membrane sweep to be performed at next visit after 39 weeks - Breast pump prescription to be provide d by Cris MÓNICA Calculator Estimated Delivery Date Method Current WG Current Estimate 06/21/25 Ultrasound #1 38w 6d Other Estimates 06/18/25 LMP (Certain) 39w 2d Office Procedures OBC Clinic LOC & Office Proc's Nursing/Assessment Patient Status: Established Patient OB Clinic Nursing Assessment: Medication Reconciliation, Update PMH in EMR and Vital Signs OB Clinic Coordination of Care: Consent,records obtained, informed consent, Education Simp Pt/Fam, Lab and Imaging orders, Results/Orders obtained and Staff clarify orders Special Needs: Heart tones Established Patient Charge Established Patient Point Assignment: 110 Established Patient Point Charge: EP Level 3 (80-115) Assessment & Plan Diagnosis / Problem List (1) Uterine size date discrepancy: Status: Acute (2) Supervision of high risk , unspecified, third trimester: Status: Acute Plan Problem List - Low amniotic fluid Assessment 38-week 5-day 3 para 2 with history of oligohydramnios (low MATIAS) that has since resolved, requiring follow-up amniotic fluid index assessment given that the last measurement was performed on 05/31, approximately two weeks prior to current visit. heart rate is normal at 155 bpm. Plan - NST and BPP to be performed today, including MATIAS check and estimated weight - Ultrasound on 4th floor to assess amniotic fluid levels and weight - Follow-up appointment in one week - Cervical exam and membrane sweep to be performed at next visit after 39 weeks - Breast pump prescription to be provided by Cris 1. Progress Reviewed gestational age (38 weeks and 5 days), growth, and heart rate (155 bpm - normal). Planned frequent visits (every 2 weeks until 36 weeks, then weekly). 2. Instructed patient to monitor movements and report decreases immediately. 3. Testing Counseled on routine third-trimester labs per guidelines. Discussed potential need for ultrasound or monitoring based on risk factors (NST and BPP with MATIAS check scheduled due to previous low amniotic fluid). 4. Preeclampsia Precaution Educated on preeclampsia signs: severe headache, vision changes, right upper quadrant pain, sudden swelling. Advised urgent reporting of symptoms and discussed blood pressure monitoring if high risk. 5. Labor Precautions Reviewed labor signs: regular contractions, pelvic pressure, back pain, bleeding, or fluid leakage. Instructed to seek immediate care for these symptoms. 6. Lifestyle and Delivery Preparation Reinforced vitamins, nutrition, and safe activity. Discussed plan, pain management, and (breast pump prescription arranged). Advised on labor preparation (e.g., hospital bag) and expectations. Discussed membrane sweeping at next visit after 39 weeks to reduce induction risk. 7. Psychosocial Support Assessed emotional well-being and offered resources for mental health or parenting support. Additional Plan Instructions: Adacel Tdap Injection Influenza (Flu) and
== END 2025-06-12 10:40 | disposition home or self-care (01) ==
LOC: HODSOBC 09:49
PROVIDERS: Supervising Provider Obstetrics & Gynecology; Visit Provider Obstetrics & Gynecology
DX: O09.893 Supervision of other high risk pregnancies, third trimester (principal); O26.843 Uterine size-date discrepancy, third trimester; Z3A.38 38 weeks gestation of pregnancy
CPT/HCPCS: 99213; G0463

== ENCOUNTER 2025-06-12 11:23 | Outpatient (CLI) | payer MEDICAID, SELFPAY ==
[2025-06-12] VITALS (14 sets, daily range): BP systolic 122–134; BP diastolic 68–87; PULSE 87–121; RESP 17–99; TEMP 36.7; O2SAT 96–98; BMI 35.5
--- NOTE | 2025-06-12 11:41 | XR_ITS ---
Examination: Complete OB ultrasound greater than 14 weeks Date and time of exam: June 12, 2025, 1255 hours INDICATIONS: Diagnosis oligohydramnios history Findings: Viable intrauterine single fetus with single amniotic sac presentation cephalic Cardiac motion 157 bpm Placenta anterior grade 1 Umbilical cord insertion and three-vessel Amniotic fluid index 13.2 cm spine maternal right Cervix 3.7 cm Ovaries obscured by bowel gas. Composite estimated gestational age based on BPD, head circumference, abdominal circumference, femur length is 36 weeks 3 days Estimated weight 3085 g. Survey of intracranial anatomy, spinal anatomy, abdominal anatomy, four-chamber heart performed with no abnormalities identified. Impression: Viable intrauterine gestation in cephalic presentation.
== END 2025-06-12 14:10 | disposition home or self-care (01) ==
LOC: S4S1 11:24 → S4SX 11:24
PROVIDERS: PCP Family Medicine; Referring Provider Obstetrics & Gynecology; Visit Provider Obstetrics & Gynecology
DX: Z34.83 Encounter for supervision of other normal pregnancy, third trimester (principal); Z36.9 Encounter for antenatal screening, unspecified; Z3A.38 38 weeks gestation of pregnancy
CPT/HCPCS: 59025; 76805

== ENCOUNTER 2025-06-19 09:37 | Outpatient (AMB) | payer MEDICAID, SELFPAY ==
[2025-06-19 09:55] VITALS: BP 165/87; PULSE 90; RESP 18; TEMP 36.2; O2SAT 98; BMI 35.6
--- NOTE | 2025-06-19 09:55 | OBCLNT_ITS ---
Vital Signs 06/19/25 09:55 Height 1.68 m Height Method Stated Weight 100.698 kg Weight Measurement Method Standing Scale BMI 35.6 BP 165/87 H Blood Pressure Source Automatic Cuff Blood Pressure Location Left Upper Arm Position Sitting Respiration 18 Pulse 90 Pulse Source Monitor Temp 97.2 F Temp Source Oral Pulse Oximetry (%) 98 Oxygen Delivery Method Room Air Allergies/Home Meds Allergies & Medications Allergies No Known Allergies Allergy (Verified 06/19/25 09:56) Medication Reconciliation vit no.95-ferrous fumarate 28 mg-folic acid 800 mcg tablet () 1 tab PO QDAY 11/20/24 [History Confirmed 06/19/25] omeprazole 40 mg capsule,delayed release 40 mg PO QDAY 30 days #30 caps 03/31/25 [Rx Confirmed 06/19/25] Intake Visit Data Collection New Patient or Established: Established Patient (seen at 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 Required: No Do You Feel Safe at Home: Yes Authorities Contacted: N/A PCP or OBGYN visit in last 3 months: Yes Date of Last PCP or OBGYN visit: 06/12/25 Hx Now: Yes Are you currently on any form of Control: No Pain Present Currently: No Pain Scale Used: Albright-Salter/Numerical Pain scale:: 0 Smoking Status Smoking Status: Never smoker Immunizations Flu Vaccine in the Last 12 Months: Yes Flu Vaccine Exclusion Criteria: No Exclusion Criteria Questionnaires Covid-19 Vaccine Questionnaire Has patient been vacinated for Covid-19 Have you been vacinated for Covid-19: Yes PHQ-9 PHQ-2 Over the last 2 weeks, how often have you been bothered by any of the following problems? 1. Little interest or pleasure in doing things: not at all 2. Feeling down, depressed, or hopeless: not at all Total score: 0 PHQ-9 3. Trouble falling or staying asleep, or sleeping too much: Not at all 4. Feeling tired or having little energy: Not at all 5. Poor appetite or overeating: Not at all 6. Feeling bad about yourself - or that you are a failure or have let yourself or your family down: Not at all 7. Trouble concentrating on things, such as reading the newspaper or watching television: Not at all 8. Moving or speaking so slowly that other people could have noticed? - Or the opposite - being so fidgety or restless that you have been moving around a lot more than usual: not at all 9. Thoughts that you would be better off or of hurting yourself in some way: Not at all Total score: 0 If you checked off any problems, how difficult have these problems made it for you to do your work, take care of things at home, or get along with other people?: not difficult at all Source: Developed by Drs. Elmre Morrissey, Carla Garza, Maximino Roche and colleagues, with an educational kaylene from [employer]. Depression screen completed yes Social History Living Situation History Marital Status: Single Lives With: Family Housing: House Tobacco History Smoking Status: Never smoker Second Hand Smoke Exposure: No Alcohol History Alcohol Intake: Never Substance Use History Substance Use: no Domestic Abuse History Do You Feel Safe at Home: Yes GM VIDEO: Past Medical History Past Medical History: No Hx Neurological Disorders, No Hx Hypothyroidism, No Hx Hyperthyroidism, No Hx Breast Cancer, No Hx Cardiac Disorders, Yes Hx Hypertension (mother,father, grandfather), No Hx Blood Disorders, Yes Hx Anemia, No Hx Gastrointestinal Disorders, No Hx Renal Disease, No Hx Deep Vein Thrombosis, No Hx Diabetes Mellitus Type 1 and No Hx Diabetes Mellitus Type 2 Care OB Visit Log OB Flowsheet Initial Weight: Not Recorded Date -?-?-?-?-?-?-?-?-?-?-?-?- EGA Weight BP Alb Glu CTX Pres Fundal ht FHR Mov Dilation Station Effacement Hx Notes Visit Note 12/24/24 -?-?-?-?-?-?-?-?-?-?-?-?- 14w [address]d [address] becca Feldman, at 14w3d gestation, presents for routine care and lab review. No CTX/LOF/VB. FM not yet perceived. No WELLS/VS, Epig/RUQ pain. Reports ongoing nausea, persistent heada ches, new dizziness with near-syncope, and a unilateral nosebleed lasting ~30?40 min (resolved). Ultrasound: FHR 154 bpm, movement noted. Maternity genome test (02/20/2025): 21% f etal fraction, negative for trisomies, female fetus. Assessment & Plan: at 14w3d with intrauterine pregnanc y. Labs and ultrasound reassuring. 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 Denies WELLS, VC, and epigastric pain. - Low energy - Pelvic pain - Occurs when lifting legs or walkin g - Described as sore - Located in the lower pelvic area - Order one-hour glucose tolerance test - Recommend elastic belly band for round ligament pain - Sleep on side with pillow behind shoul angelica, preferably left side - Follow up in 4 weeks 03/31/25 -?-?-?-?-?-?-?-?-?-?-?-?- 28w 2d 92.986 kg 125/82 absent cephalic 28 143 active - She reports severe acid reflux: - Worsening symptoms, especially at ni ght - Initially managed with Tums, but no longer effective - Causing sleep disturbance - Denies back pain - Denies bowel issues (diarrhea, constipation) - Prescribe omeprazole for acid reflux - Continue vitamins - Follow up in 2 weeks - Recommend smaller, more frequent meals and avoiding hot or fatty foods to manage acid reflux 04/15/25 -?-?-?-?-?-?-?-?-?-?-?-?- 30w 3d 93.894 kg 124/74 absent cephalic 31 145 active No contractions, LOF, VB and reports good FM. Patient complains of itching. Denies WELLS, VC, and epigastric pain. - Order bile acids - Return in 2 weeks - Benadryl for itching - Preeclampsia precautions - labor precautions 04/29/25 -?-?-?-?-?-?-?-?-?-?-?-?- 32w 3d 94.517 kg 131/86 absent cephalic 33 140 active Previous complaint of pruritus, now resolved, with bile acids at 1.4 (normal <10), ruling out cholestasis of . Patient reports persistent nocturnal pain in the upper abdominal area radiating to the back, potentially indicative of ureteral compression by the gravid uterus. Hemoglobin 11.3, A1c 5.0, and RPR non- reactive. movement reported as normal. Patient experiencing symptoms consistent with pruritic urticarial papules and plaques of (PUPPP), responding to intermittent Benadryl use. - Continue Benadryl as needed for itching - Increase water intake to alleviate upp er abdominal pain - Follow up in 2 weeks 05/13/25 -?-?-?-?-?-?-?-?-?-?-?-?- 34w 3d 96.162 kg 125/78 occasional cephalic 34 145 active - Persistent pruritus - Taking Benadryl for relief - Reports some improvement with medi cation - Upper abdominal and flank pain - Ongoing, but intermittent - Occurs every 15-20 minutes - Episodes last less than an hour - Continue [place] dryl for itching - Monitor abdominal pain; if it lasts lo nger than 1 hour, patient should go to the hospital for monitoring of potential contractions - heart rate check performed: 143 bpm, noted as normal - Ultrasound to be performed (pending in surance verification) 05/20/25 -?-?-?-?-?-?-?-?-?-?-?-?- 35w 3d 95.708 kg 121/77 occasional cephalic 36 145 active - Recent ultrasound on 05/15/2025 showed: - Fetus measuring 34 weeks and 5 days, consistent with dates - Amniotic Fluid Index (MATIAS) of 5.8 cm , borderline low - Cervical length 4.9 cm - heart rate 133 bpm - Anterior placenta - Patient reports no specific complaints or symptoms - Adherence to vitamins: - Patient requested refill of vitamins - Reports issue with pharmacy referral process - Repeat ultrasound for MATIAS measurement in one week at labor and delivery, 4th floor of the hospital - Patient to go to labor and delivery du ring morning hours for the ultrasound - Clinician to call labor and delivery t o place the order for the ultrasound - New prescription for vitamins to be sent to [facility] pharmacy - Follow-up appointment in one week - Potential delivery at 37 to 38 weeks i f fluid levels remain low 05/27/25 -?-?-?-?-?-?-?-?-?-?-?-?- 36w 3d 97.692 kg 130/84 absent cephalic 37 145 active - At her last appointment, patient had low amniotic fluid (MATIAS) and was sent for repeat testing, which showed improvement to 10.5. - Patient reports headache for the last 3 days. - Has not tried Tylenol or other medic ations for relief. - Patient reports clear vaginal discharg e. - Patient denies leaking of fluid or ble eding. - Patient reports baby is moving well. - Return Sunday morning at 9-10 AM for repeat amniotic fluid level check with Dr. Raphael at hospital - Take Tylenol 500mg for headache; if in effective, take second dose after 2 hours; if still no relief, return to hospital for IV medication - Follow up in clinic in one week - At 39 weeks gestation, perform membran e sweeping - Return to hospital immediately if any issues arise 06/12/25 -?-?-?-?-?-?-?-?-?-?-?-?- 38w 5d 98.656 kg 122/86 occasional cephalic 39 155 active - She had one occasion of low amniotic fluid (MATIAS) which has since resolved. - She requests a breast pump prescriptio n. - Her last MATIAS check was on May 31, approximately two weeks prior to this visit. - NST and BPP to be performed today, including MATIAS check and estimated weight - Ultrasound on 4th floor to assess amni otic fluid levels and weight - Follow-up appointment in one week - Cervical exam and membrane sweep to be performed at next visit after 39 weeks - Breast pump prescription to be provide d by Cris 06/19/25 -?-?-?-?-?-?-?-?-?-?-?-?- 39w 5d 100.698 kg 165/87 absent cephalic 41 active No contractions, LOF, VB and reports good FM. Denies WELLS, VC, and epigastric pain. Plan - Admit to hospital 4th floor for hypert ension management at 39 weeks gestation - Monitor with serial blood pressures - If blood pressure decreases: provide i nduction date within 3-4 days and discharge home - If blood pressure remains =140 systoli c or =90 diastolic: proceed with inpatient induction MÓNICA Calculator Estimated Delivery Date Method Current WG Current Estimate 06/21/25 Ultrasound #1 40w 1d Other Estimates 06/18/25 LMP (Certain) 40w 4d Office Procedures OBC Clinic LOC & Office Proc's Nursing/Assessment Patient Status: Established Patient OB Clinic Nursing Assessment: Medication Reconciliation, Update PMH in EMR and Vital Signs OB Clinic Coordination of Care: Consent,records obtained, informed consent, Education Simp Pt/Fam, Lab and Imaging orders, Results/Orders obtained and Staff clarify orders Special Needs: Heart tones Established Patient Charge Established Patient Point Assignment: 110 Established Patient Point Charge: EP Level 3 (80-115) Assessment & Plan Diagnosis / Problem List (1) Uterine size date discrepancy: Status: Acute (2) Supervision of high risk , unspecified, third trimester: Status: Acute Plan Problem List - Hypertension in Assessment 39-week patient presenting with hypertension, with blood pressure of 160 mmHg systolic requiring immediate hospital admission for serial blood pressure monitoring and potential induction of labor. Plan - Admit to hospital 4th floor for hypertension management at 39 weeks gestation - Monitor with serial blood pressures - If blood pressure decreases: provide induction date within 3-4 days and discharge home - If blood pressure remains >=40 systolic or >=0 diastolic: proceed with inpatient induction (If not initial visit and GA >20 weeks): 1. Progress Reviewed gestational age, growth, and heart rate. Planned frequent visits (every 2 weeks until 36 weeks, then weekly). 2. Instructed patient to monitor movements and report decreases immediately. 3. Testing Counseled on routine third-trimester labs per guidelines. Discussed potential need for ultrasound or monitoring based on risk factors. 4. Preeclampsia Precaution Educated on preeclampsia signs: severe headache, vision changes, right upper quadrant pain, sudden swelling. Advised urgent reporting of symptoms and discussed blood pressure monitoring if high risk. 5. Labor Precautions Reviewed labor signs: regular contractions, pelvic pressure, back pain, bleeding, or fluid leakage. Instructed to seek immediate care for these symptoms. 6. Lifestyle and Delivery Preparation Reinforced vitamins, nutrition, and safe activity. Discussed plan, pain management, and . Advised on labor preparation (e.g., hospital bag) and expectations. 7. Psychosocial Support Assessed emotional well-being and offered resources for mental health or parenting support.
== END 2025-06-19 10:20 | disposition home or self-care (01) ==
LOC: HODSOBC 09:37
PROVIDERS: Supervising Provider Obstetrics & Gynecology; Visit Provider Obstetrics & Gynecology
DX: O09.893 Supervision of other high risk pregnancies, third trimester (principal); O13.3 Gestational [pregnancy-induced] hypertension without significant proteinuria, third trimester; O26.843 Uterine size-date discrepancy, third trimester; Z3A.39 39 weeks gestation of pregnancy
CPT/HCPCS: 99213; G0463

== ENCOUNTER 2025-06-19 13:39 | Inpatient (IN) | payer MEDICAID, SELFPAY ==
[2025-06-19] VITALS (101 sets, daily range): BP systolic 113–156; BP diastolic 70–113; PULSE 73–115; RESP 16–99; TEMP 36.7–37.1; O2SAT 92–100; BMI 57.7; BMI 35.3
[2025-06-19 11:06] LABS: Collection Type, Urine Clean Catch
[2025-06-19 11:16] LABS: Amorphous Crystals,Urine Present (Absent); Bacteria,Urine Rare; Bilirubin,Urine Negative (Negative); Blood,Urine 1+ (Negative); Color,Urine Yellow (Lt Yel-Yel); Glucose, Urine Negative (Negative); Ketones,Urine Negative (Negative); Leukocyte Esterase,Urine Positive (Negative); Nitrite,Urine Negative (Negative); PH,Urine 7.0 (5.0-7.0); Protein,Urine Trace (Neg - Trace); RBC,Urine 8 /hpf (0-3); Specific Gravity,Urine 1.019 (1.001-1.035); Squamous Epithelial Cell,Urine 23 /hpf (0-5); Urobilinogen,Urine Negative mg/dL (0.0-1.0); WBC,Urine 15 /hpf (0-5)
[2025-06-19 11:33] LABS: Clarity,Urine Cloudy (Clear/Hazy)
[2025-06-19 11:54] LABS: Creatinine,Random Urine 96 mg/dL (30-125); Protein Total, Random Urine 42 mg/dL (1-14)
[2025-06-19 11:56] LABS: Basophils # (Auto) 0.0 Thou/mm3 (0.0-0.2); Basophils % (Auto) 0 % (0-2.5); Eosinophils # (Auto) 0.1 Thou/mm3 (0.0-0.5); Eosinophils % (Auto) 1 % (0-10); Hematocrit 32.1 % (36.0-46.0); Hemoglobin 10.6 g/dL (12.0-16.0); Immature Granulocytes Auto 0.03 Thou/mm3 (0.00-0.00); Lymphocytes # (Auto) 1.7 Thou/mm3 (1.0-4.8); Lymphocytes % (Auto) 22 % (10-50); Mean Corpuscular HGB Conc 33.0 g/dl (31.0-37.0); Mean Corpuscular Hemoglobin 28.1 pg (25.0-35.0); Mean Corpuscular Volume 85 fL (80-100); Monocytes # (Auto) 0.5 Thou/mm3 (0.0-0.8); Monocytes % (Auto) 7 % (0-12); Neutrophils # (Auto) 5.4 Thou/mm3 (1.8-7.7); Neutrophils % (Auto) 70 % (37-80); Nucleated Red Blood Cell # 0.00 Thou/mm3 (0.00-0.00); Nucleated Red Blood Cell % 0 /100 WBC (0); Platelet Count 152 Thou/mm3 (140-440); RDW Standard Deviation 42.5 fL (36.4-46.3); Red Blood Count 3.77 Miln/mm3 (4.00-5.20); White Blood Count 7.7 Thou/mm3 (3.6-11.0)
[2025-06-19 12:21] LABS: Fibrinogen 512 mg/dL (175-375); INR 1.0 (0.9-1.3); Partial Thromboplastin Time 28.3 Seconds (22.0-36.0); Prothrombin Time 10.2 Seconds (9.0-12.2)
[2025-06-19 12:26] LABS: Alanine Aminotransferase 8 U/L (10-49); Albumin, Serum 3.8 gm/dL (3.5-5.0); Albumin/Globulin Ratio 1.7 (1.2-2.2); Alkaline Phosphatase 134 U/L (46-116); Anion Gap 11 (7-16); Aspartate Amino Transferase 15 U/L (0-34); BUN/Creatinine Ratio 18 Ratio (12-20); Bilirubin,Total 0.9 mg/dL (0.3-1.2); Blood Urea Nitrogen 9 mg/dL (9-23); Calcium 9.0 mg/dL (8.3-10.6); Calcium (Corrected) 9.2 mg/dL (8.5-10.1); Carbon Dioxide 22.5 mMol/L (20.0-31.0); Chloride 106 mMol/L (98-107); Creatinine (Component) 0.5 mg/dL (0.6-1.3); Estimated Creatinine Clearance 166.3 mL/min (>60); Globulin 2.3 gm/dL (2.3-3.5); Glucose 89 mg/dL (74-106); LDH (Lactate Dehydrogenase) 159 U/L (120-246); Osmolality,Calculated 275 (275-295); Potassium 4.1 mMol/L (3.4-5.1); Sodium 139 mMol/L (136-145); Total Protein 6.1 gm/dL (5.7-8.2); Uric Acid 6.4 mg/dL (3.1-7.8); eGFR > 60 See Note
--- NOTE | 2025-06-19 13:35 | PD.LDHP ---
Documentation for date of: 06/19/25 OB Labor/Induct. HPI History of Present Illness Chief complaint: Blood pressure check, headache : 3 Para: 2 Term pregnancies: 2 pregnancies: 0 Living children: 2 History of Abortions: Spontaneous and Elective: 0 History of Vaginal deliveries: 2 History of sections: No History of : No MÓNICA: 06/21/25 Gestational Age (weeks): 39 Gestational Age (days): 5 History of present illness: The patient is a 29-year-old -0-0-2 with all care complicated with Dr. Raphael at the [facility] clinic sent over to OB triage for an evaluation. The patient was seen today in the office complaining of a mild headache. Her blood pressure in the office was 165/87. In triage, her blood pressures were in the 130s over 70s. Preeclamptic labs were normal, with the exception of a UPCR ratio of 0.4 corresponding to 540 mg of protein in 24 hours. Her platelets were borderline low at 152. Her NST was reactive. The patient was examined in triage and found to be 3 cm dilated 70% effaced vertex presentation with a bulging bag of water. As patient is very close to her due date, with an abnormal urine protein creatinine ratio and some elevated blood pressures while ambulating in the office today, she was admitted for an induction of labor for -induced hypertension. Her group B strep is negative. Of note the patient stated her last baby was close to 10 pounds but there was no shoulder dystocia. She denied any problems with either delivery including any hemorrhage. The patient plans on getting an epidural in activelabor. History of Present Dating criteria: LMP confirmed by 2nd trimester US Adequate Care: No Ultrasounds: normal mid trimester US Obstetrical complications: none Medical complications: none Labs Maternal Blood Type: O Pos Labs: Negative: RPR and Unknown: Hepatitis B, Rubella Titre, HIV, Chlamydia, Gonorrhea and Group Beta Strep Past Medical History Surgical History SURGICAL: Negative Section Past Medical History Comments PMH COMMENT: Patient denies significant past medical history. No history of -induced hypertension in either . History of vaginal delivery x 2 without complications, the last baby weighed close to 10 pounds. Meds Home Medications and Allergies Home Medications ?Medication ?Instructions ?Recorded ?Confirmed ?Type vit no.95-ferrous 1 tab PO QDAY 11/20/24 06/19/25 History fumarate 28 mg-folic acid 800 mcg tablet () Allergies Allergy/AdvReac Type Severity Reaction Status Date / Time No Known Allergies Allergy Verified 06/19/25 09:56 OB Exam Physical Exam Vital signs: Temp Pulse Resp BP Pulse Ox 98.1 F 73 18 148/84 H 98 06/19/25 10:51 06/19/25 13:01 06/19/25 10:51 06/19/25 13:01 06/19/25 12:53 Routine Abdominal Exam Abdominal: Present soft Detailed Labor and Delivery Exam Dilation (cm): 3 Effacement (%): 70 station: -2 Consistency: soft Presentation: Vertex Membranes: intact monitor accelerations: 15x15 monitor decelerations: None 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: Moderate (11-25) Tachysystole: No Contraction intensity: Mild Routine Extremities Exam Comments: No significant edema or erythema OB Results Labs 06/19/25 11:46 06/19/25 11:46 Labs: Short CBC 06/19/25 Range/Units 11:46 WBC 7.7 (3.6-11.0) Thou/mm3 Hgb 10.6 L (12.0-16.0) g/dL Hct 32.1 L (36.0-46.0) % Plt Count 152 (140-440) Thou/mm3 BMP 06/19/25 11:46 Sodium 139 Potassium 4.1 Chloride 106 Carbon Dioxide 22.5 BUN 9 Creatinine 0.5 L Glucose 89 Calcium 9.0 Liver Function 06/19/25 Range/Units 11:46 Total Bilirubin 0.9 (0.3-1.2) mg/dL AST 15 (0-34) U/L ALT 8 L (10-49) U/L Alkaline Phosphatase 134 H (46-116) U/L Albumin 3.8 (3.5-5.0) gm/dL Urine 06/19/25 Range/Units 11:00 Urine Color Yellow (Lt Yel-Yel) Urine Clarity Cloudy A (Clear/Hazy) Urine pH 7.0 (5.0-7.0) Ur Specific [place] 1.019 (1.001-1.035) Urine Protein Trace (Neg - Trace) Urine Glucose (UA) Negative (Negative) OB Assessment & Plan Assessment and Plan (1) Supervision of high risk , unspecified, third trimester: Status: Acute (2) -induced hypertension in third trimester: Status: Acute Assessment and plan: Admit patient. Induction of labor. Okay for epidural in active labor. Will monitor blood pressures and prescribe IV push labetalol or hydralazine as needed. No magnesium at this time as patient has mild -induced hypertension. All questions answered and the plan explained to the patient who is in agreement. Group B strep negative. Additional Plan Induction method: per misoprostol protocol Plan: induction and anticipate NVD
[2025-06-19 14:44] LABS: Syphilis Nonreactive (Nonreactive)
[2025-06-19 18:35] LABS: Chlamydia trachomatis PCR Negative (Not Detect); Neisseria Gonorrhoeae DNA PCR Negative (Not Detect); Trichomonas Negative (Negative)
[2025-06-19] MEDS: OXYTOCIN in NS 20 units 20 UNIT/1,000 ML BAG 125 UNIT IV (21:03)
[2025-06-19] MEDS: ACETAMINOPHEN 325 MG TABLET 650 MG PO (23:50)
--- NOTE | 2025-06-20 00:13 | OBDSUM_ITS ---
Data (Topete) Data Hx Section: No Maternal Blood Type: O Pos Rubella Titre: Positive RPR: Non-reactive Labs: Negative: RPR, Hepatitis B, HIV, Chlamydia, Gonorrhea and Group Beta Strep : 3 Term: 2 : 0 Livin Abortions: Spontaneous & Theraputic: 0 Delivery Data (Topete) Labor Data Initiation of labor: Induction Induction/Augmentation Agent: Cytotec-PO and Artificial ROM ROM date: 06/19/25 ROM time: 19:25 Amniotic membrane rupture type: Artificial Amniotic fluid description: Clear Delivery Data EDC: 06/21/25 EDC calculated by:: LMP/early US confirmation Date of arrival to unit: 06/19/25 Onset of labor date: 06/19/25 Onset of labor time: 17:30 Complete dilation date: 06/19/25 Complete dilation time: 20:54 Campbell delivery date: 06/19/25 Campbell delivery time: 20:59 Gestational age (weeks): 39 Gestational age (days): 5 Placenta delivery date: 06/19/25 Placenta delivery time: 21:03 Stage 1 total time: Labor - Stage 1 Duration 3 hours and 24 minutes Delivered by: Alize Orozco (OB Clinic) Delivery nurse: Mary Weller nurse: Ghada RN Mapping Analyst at delivery: No Support person(s) at delivery: FOB Other staff at delivery: Ani EDOUARDchief risk officer Method Delivery method: Normal Vaginal Delivery Presentation: Vertex position: OA Anesthesia Type Anesthesia Type: Epidural Delivery Room Medications Delivery room medications: Pitocin 20 u IV Placenta Placenta delivery description: Spontaneous Cord blood sent to lab: Yes cord blood collection: Cord Blood Type Episiotomy Episiotomy description: None EBL Estimated blood loss (ml): 200 Umbilical Cord cord description: 3 Vessels Additional Procedures The patient is a 29-year-old -0-0-2 at 39-5/7 weeks sent over from the office after seeing Dr. Raphael for a blood pressure that was elevated in the office of 165/87. She did have a headache. In labor and delivery, her blood pressures were lower however a UPCR ratio was abnormal and corresponded to ap proximately 540 mg in a 24-hour urine. As patient was already 3 cm dilated and was close to her due date she admitted for an induction of labor. She was given 1 oral dose of Cytotec 50 mcg and began zeenat regularly. She had an epidural placed. She was examined about 1730 and was 4 cm dilated and an amniotomy was performed. The patient rapidly progressed to complete by 2053 without the aid of Pitocin, and pushed through 1 contraction delivering a liveborn female at 2058. Findings: Liveborn female in the [place] presentation with no nuchal cord and no meconium. Apgars were 8 and 9. Weight was 8 pounds 0 ounces. The placenta was complete, spontaneous , and grossly normal delivering within 5 minutes of the baby delivering. Of note, the baby was vigorous at and placed immediately on mom's chest. Delayed cord clamping was performed for 2 minutes. The cord was then clamped and cut and the was handed to the waiting pediatric staff. Cord blood and cord gases were sent. The patient delivered an intact perineum. Complications were none.Condition: Both mom and infant were in stable condition the delivery room. EBL was 200 cc. Complications Complications: None Data (Topete) Campbell Data order: 1 Campbell's gender: Female Identification band number: [id number] weight (gms): 3640 g Weight (pounds): 8 lbs and 0.4 ozs length: 52.07 cm 1 minute: 8 5 minutes: 9
[2025-06-20 04:23] VITALS: BP 116/72; PULSE 97; RESP 16; TEMP 36.6
[2025-06-20 05:22] LABS: Basophils # (Auto) 0.0 Thou/mm3 (0.0-0.2); Basophils % (Auto) 0 % (0-2.5); Eosinophils # (Auto) 0.0 Thou/mm3 (0.0-0.5); Eosinophils % (Auto) 0 % (0-10); Hematocrit 28.8 % (36.0-46.0); Hemoglobin 9.6 g/dL (12.0-16.0); Immature Granulocytes Auto 0.04 Thou/mm3 (0.00-0.00); Lymphocytes # (Auto) 2.2 Thou/mm3 (1.0-4.8); Lymphocytes % (Auto) 20 % (10-50); Mean Corpuscular HGB Conc 33.3 g/dl (31.0-37.0); Mean Corpuscular Hemoglobin 28.5 pg (25.0-35.0); Mean Corpuscular Volume 86 fL (80-100); Monocytes # (Auto) 0.6 Thou/mm3 (0.0-0.8); Monocytes % (Auto) 6 % (0-12); Neutrophils # (Auto) 7.9 Thou/mm3 (1.8-7.7); Neutrophils % (Auto) 73 % (37-80); Nucleated Red Blood Cell # 0.00 Thou/mm3 (0.00-0.00); Nucleated Red Blood Cell % 0 /100 WBC (0); Platelet Count 130 Thou/mm3 (140-440); RDW Standard Deviation 42.6 fL (36.4-46.3); Red Blood Count 3.37 Miln/mm3 (4.00-5.20); White Blood Count 10.9 Thou/mm3 (3.6-11.0)
[2025-06-20 07:00] VITALS: BP 130/89; PULSE 94; RESP 16; TEMP 36.9; O2SAT 98
[2025-06-20] MEDS: IBUPROFEN TAB 400 MG TABLET 800 MG PO ×2 (07:52→19:47)
--- NOTE | 2025-06-20 11:26 | ESPR_ITS ---
Subjective Subjective Interval history: Patient has no/ complaints Headache no Blurry vision no Chest pain no Palpitations no Shortness of breath no Nausea or vomiting or constipation no Back pain no Dysuria no Dizziness no calf pain no She is voiding spontaneously after catheter removal yes Passing flatus yes Lochia minimal yes Exam Vital Signs Temp Pulse Resp BP Pulse Ox O2 Del Method 98.4 F 94 16 130/89 H 98 Room Air 06/20/25 07:00 06/20/25 07:00 06/20/25 07:00 06/20/25 07:00 06/20/25 07:00 06/20/25 07:00 Narrative Exam alert x3 chest clear CVS RRR NO thromegaly Uterus is nontender Uterus is firm Just below the umbilicus Bowel sounds present Abdomen soft no hernias noted/no CVAT No calf tenderness Edema Objective Labs 06/20/25 04:40 06/19/25 11:46 Labs: Laboratory Results - last 24 hr 06/19/25 06/19/25 06/19/25 11:00 11:35 11:46 WBC 7.7 RBC 3.77 L Hgb 10.6 L Hct 32.1 L MCV 85 MCH 28.1 MCHC 33.0 RDW Std Deviation 42.5 Plt Count 152 Neut % (Auto) 70 Lymph % (Auto) 22 [place] % (Auto) 7 Eos % (Auto) 1 Baso % (Auto) 0 Neut # (Auto) 5.4 Lymph # (Auto) 1.7 [place] # (Auto) 0.5 Eos # (Auto) 0.1 Baso # (Auto) 0.0 Immature Gran # (Auto) 0.03 H Absolute Nucleated RBC 0.00 Immature Gran % 0 Nucleated RBC % 0 PT 10.2 INR 1.0 APTT 28.3 Fibrinogen 512 H Sodium 139 Potassium 4.1 Chloride 106 Carbon Dioxide 22.5 Anion Gap 11 BUN 9 Creatinine 0.5 L Estim Creat Clear Calc 166.3 eGFR > 60 BUN/Creatinine Ratio 18 Glucose 89 Calculated Osmolality 275 Uric Acid 6.4 Calcium 9.0 Corrected Calcium 9.2 Total Bilirubin 0.9 AST 15 ALT 8 L Alkaline Phosphatase 134 H Lactate Dehydrogenase 159 Total Protein 6.1 Albumin 3.8 Globulin 2.3 Albumin/Globulin Ratio 1.7 Ur Collection Type Clean Catch Urine Color Yellow Urine Clarity Cloudy A Urine pH 7.0 Ur Specific [place] 1.019 Urine Protein Trace Urine Glucose (UA) Negative Urine Ketones Negative Urine Blood 1+ A Urine Nitrite Negative Urine Bilirubin Negative Urine Urobilinogen (Auto) Negative Ur Leukocyte Esterase Positive Urine RBC 8 H Urine WBC 15 H Ur Squamous Epith Cells 23 H Amorphous Crystals Present A Urine Bacteria Rare Ur Random Creatinine 96 U Random Total Protein 42 H Syphilis Serology Nonreactive Chlam trachomat DNA PCR Negative N.gonorrhoeae DNA (PCR) Negative Trichomonas DNA Probe Negative 06/20/25 04:40 WBC 10.9 D RBC 3.37 L Hgb 9.6 L Hct 28.8 L MCV 86 MCH 28.5 MCHC 33.3 RDW Std Deviation 42.6 Plt Count 130 L Neut % (Auto) 73 Lymph % (Auto) 20 [place] % (Auto) 6 Eos % (Auto) 0 Baso % (Auto) 0 Neut # (Auto) 7.9 H Lymph # (Auto) 2.2 [place] # (Auto) 0.6 Eos # (Auto) 0.0 Baso # (Auto) 0.0 Immature Gran # (Auto) 0.04 H Absolute Nucleated RBC 0.00 Immature Gran % 0 Nucleated RBC % 0 PT INR APTT Fibrinogen Sodium Potassium Chloride Carbon Dioxide Anion Gap BUN Creatinine Estim Creat Clear Calc eGFR BUN/Creatinine Ratio Glucose Calculated Osmolality Uric Acid Calcium Corrected Calcium Total Bilirubin AST ALT Alkaline Phosphatase Lactate Dehydrogenase Total Protein Albumin Globulin Albumin/Globulin Ratio Ur Collection Type Urine Color Urine Clarity Urine pH Ur Specific [place] Urine Protein Urine Glucose (UA) Urine Ketones Urine Blood Urine Nitrite Urine Bilirubin Urine Urobilinogen (Auto) Ur Leukocyte Esterase Urine RBC Urine WBC Ur Squamous Epith Cells Amorphous Crystals Urine Bacteria Ur Random Creatinine U Random Total Protein Syphilis Serology Chlam trachomat DNA PCR N.gonorrhoeae DNA (PCR) Trichomonas DNA Probe Assessment & Plan Problem List (1) Supervision of high risk , unspecified, third trimester: Status: Acute (2) -induced hypertension in third trimester: Problem details: Not on Blood pressure medications / elevated BP but no severe features Plan follow up in 1 week after discharge Status: Acute (3) Vaginal delivery: Status: Acute Time Spent With Patient Time: Total time spent is greater than 50% in coordination of care (as documented) at patient's floor/unit and/or counseling patient:
[2025-06-20 11:40] VITALS: BP 143/87; PULSE 77; RESP 18; TEMP 36.6; O2SAT 98
[2025-06-20 16:40] VITALS: BP 122/83; PULSE 84; RESP 15; TEMP 36.8; O2SAT 97
[2025-06-20 19:19] VITALS: BP 132/86; PULSE 78; RESP 18; TEMP 36.6; O2SAT 97
[2025-06-21 03:19] VITALS: BP 120/82; PULSE 82; RESP 16; TEMP 36.7; O2SAT 98
[2025-06-21 08:05] VITALS: BP 110/68; PULSE 80; RESP 16; TEMP 36.7; O2SAT 98
--- NOTE | 2025-06-21 10:37 | ESDS_ITS ---
DS: Providers Provider Date of admission: 06/19/25 13:39 Primary care physician: Physician No Primary/Family Admitting Provider: Alize Orozco MD (OB Clinic) Attending Provider on Admission: Alize Orozco MD (OB Clinic) Consults: 06/19/25 23:26 Referral Routine Comment: Attending Provider on DC: Shelby Siegel MD Discharging Provider: Shelby Siegel MD DS: Diagnosis Discharge Diagnosis (1) Vaginal delivery: Status: Acute (2) -induced hypertension in third trimester: Status: Acute Problem List Completed Was Problem List Reviewed/Reconciled?: Yes Summary/Hosp Course Brief History: The patient is a 29-year-old -0-0-2 with all care complicated with Dr. Raphael at the [facility] clinic sent over to OB triage for an evaluation. The patient was seen today in the office complaining of a mild headache. Her blood pressure in the office was 165/87. In triage, her blood pressures were in the 130s over 70s. Preeclamptic labs were normal, with the exception of a UPCR ratio of 0.4 corresponding to 540 mg of protein in 24 hours. Her platelets were borderline low at 152. Her NST was reactive. The patient was examined in triage and found to be 3 cm dilated 70% effaced vertex presentation with a bulging bag of water. As patient is very close to her due date, with an abnormal urine protein creatinine ratio and some elevated blood pressures while ambulating in the office today, she was admitted for an induction of labor for -induced hypertension. Her group B strep is negative. Of note the patient stated her last baby was close to 10 pounds but there was no shoulder dystocia. She denied any problems with either delivery including any hemorrhage. The patient plans on getting an epidural in [facility]. she delivered 2 days ago and is stable for discharge / and will follow up in 1 week for BP check Peripartum Data Delivery Method: Normal Vaginal Delivery Episiotomy Description: None complications: none Status at Discharge Cognitive/behavioral status at discharge: Patient has noalert x3 chest clear CVS RRR NO thromegaly Uterus is nontender Uterus is firm Just below the umbilicus Bowel sounds present Abdomen soft no hernias noted/no CVAT No calf tenderness Edema mild No complaints Headache no Blurry vision no Chest pain no Palpitations no Shortness of breath no Nausea or vomiting or constipation no Back pain no Dysuria no Dizziness no calf pain no She is voiding spontaneously Passing flatus yes Lochia minimal yes Functional status at discharge: independent ambulation Overall status at discharge: patient is progressing back to baseline Time Spent with Patient Time attestation: Total time spent providing and/or coordinating discharge services: Exam Vital Signs Temp Pulse Resp BP Pulse Ox O2 Del Method 98.0 F 80 16 110/68 98 Room Air 06/21/25 08:05 06/21/25 08:05 06/21/25 08:05 06/21/25 08:05 06/21/25 08:05 06/21/25 08:05 Discharge Plan Plan Patient Disposition: HOME (Self Care) Prescriptions/Referrals Prescriptions/Med Rec: No Action PNV no.95-ferrous fumarate-FA [] 28 mg iron- 800 mcg tablet 1 tab PO QDAY omeprazole 40 mg capsule,delayed release(DR/EC) 40 mg PO QDAY 30 Days Qty: 30 4RF Referrals: No Primary/Family,Physician [Primary Care Provider] Patient/Caregiver Discharge Instructions Discharge Activity: activity as tolerated Other Discharge Activity Instructions:: pelvic rest x 6 weeks follow up in 1 week for BP check Other Discharge Diet Instructions: regular diet Education Materials: After a Vaginal , Depression, Incision Care After Vaginal , Nutrition While , : Caring for Yourself, Gestational Hypertension Print Language: Cambodian Stand Alone Forms: [place] Award Info., Patient Portal Info Letter Discharge Order Discharge Orders: Discharge (Routine); Ordered 06/21/25 Ordered By: Shelby Siegel Planned Discharge Date 06/21/25
[2025-06-21 12:30] VITALS: BP 132/88; PULSE 88; RESP 16; TEMP 37.2; O2SAT 98
[2025-06-21] MEDS: IBUPROFEN TAB 400 MG TABLET 800 MG PO (12:56)
== END 2025-06-21 13:31 | disposition home or self-care (01) | DRG 560 ==
LOC: S4S1 13:39 → S4SX 13:41
PROVIDERS: Admitting Provider Obstetrics & Gynecology; Referring Provider Obstetrics & Gynecology; Visit Provider Obstetrics & Gynecology
DX: O13.4 Gestational [pregnancy-induced] hypertension without significant proteinuria, complicating childbirth (principal); Z3A.39 39 weeks gestation of pregnancy; Z37.0 Single live birth
CPT/HCPCS: 36415; 59025; 80053; 81001; 82570; 83615; 84156; 84550; 85025; 85384; 85610; 85730; 86780; 87491; 87591; 87661; J2590; J2795; J3010; A9270

== ENCOUNTER 2025-06-24 10:02 | Outpatient (AMB) | payer MEDICAID, SELFPAY ==
--- NOTE | 2025-06-24 10:12 | AMB.OBPP ---
Vital Signs 06/24/25 10:14 Height 1.68 m Height Method Stated Weight 98.486 kg Weight Measurement Method Standing Scale BMI 35.0 BP 122/83 Blood Pressure Source Automatic Cuff Blood Pressure Location Left Upper Arm Position Sitting Respiration 18 Pulse 70 Pulse Source Monitor Temp 97.5 F Temp Source Temporal Artery Scan Pulse Oximetry (%) 97 Oxygen Delivery Method Room Air Allergies/Home Meds Allergies & Medications Allergies No Known Allergies Allergy (Verified 06/19/25 09:56) Medication Reconciliation vit no.95-ferrous fumarate 28 mg-folic acid 800 mcg tablet () 1 tab PO QDAY 11/20/24 [History Confirmed 06/24/25] omeprazole 40 mg capsule,delayed release 40 mg PO QDAY 30 days #30 caps 03/31/25 [Rx Confirmed 06/24/25] Intake Visit Data Collection New Patient or Established: Established Patient (seen at [facility] within 3 years) Reason for Visit:: PP / BPC Seen by Clinical Staff ONLY (RN/MA): No Programming Equipment Operator Required: No Do You Feel Safe at Home: Yes Authorities Contacted: N/A PCP or OBGYN visit in last 3 months: Yes Date of Last PCP or OBGYN visit: 06/19/25 Hx Now: No Are you currently on any form of Control: No Pain Present Currently: No Pain Scale Used: [place]-Salter/Numerical Pain scale:: 0 Smoking Status Smoking Status: Never smoker Immunizations Flu Vaccine in the Last 12 Months: No Flu Vaccine Exclusion Criteria: No Exclusion Criteria RN MENTAL HEALTH: Past Medical History Past Medical History: No Hx Neurological Disorders, No Hx Hypothyroidism, No Hx Hyperthyroidism, No Hx Breast Cancer, No Hx Cardiac Disorders, Yes Hx Hypertension, No Hx Blood Disorders, Yes Hx Anemia, No Hx Gastrointestinal Disorders, No Hx Renal Disease, No Hx Deep Vein Thrombosis, No Hx Diabetes Mellitus Type 1 and No Hx Diabetes Mellitus Type 2 Questionnaires Covid-19 Vaccine Questionnaire Has patient been vacinated for Covid-19 Have you been vacinated for Covid-19: No Social History Living Situation History Marital Status: Life Partner Lives With: Family Housing: House Tobacco History Smoking Status: Never smoker Second Hand Smoke Exposure: No Alcohol History Alcohol Intake: Never Substance Use History Substance Use: no Domestic Abuse History Do You Feel Safe at Home: Yes EPDS - PP Depression Screening [place] Pospartum Depression Screen I have been able to laugh and see the funny side of things: (0) As much as I always could I have looked forward with enjoyment to things: (0) As much as I ever did I have blamed myself unnecessarily when things went wrong: (0) No, never I have been anxious or worried for no good reason: (0) No, not at all I have felt scared or panicky for no very good reason: (0) No, not at all Things have been getting on top of me: (0) No, I have been coping as well as ever I have been so unhappy that I have had difficulty sleeping: (0) No, not at all I have felt sad or miserable: (0) No, not at all I have been so unhappy that I have been crying: (0) No, never EPDS completed yes HPI Interval History: Kasia Feldman presents with cramping over the past week, describing it as a lot of like cramping since delivery. She has been managing this cramping with ibuprofen. The patient is currently one week following induction and delivery for gestational hypertension. She is initiating feeding for her , starting with formula and beginning to pump breast milk. The patient denies being prescribed or taking any blood pressure medications . She has an obstetric history of G1 T1 L1, having recently delivered a male at term via induction for gestational hypertension. She is currently one week and no current blood pressure medications are required. The patient has been taking ibuprofen for cramping and vitamins. 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 ROS: Musculoskeletal: Positive for cramping. Neurological: Negative for headache. Delivering provider: Dr Orozco Exam General General Appearance: alert, in no apparent distress and healthy appearing Head Head exam: atraumatic Neck Neck exam: Present normal inspection and trachea midline Chest Chest inspection: Present normal inspection and symmetric chest wall rise External exam: Present normal external exam; Absent tenderness Neuro Neurological exam: Present oriented X3 Psych Psychiatric exam: Present normal affect and normal mood Office Procedures OBC Clinic LOC & Office Proc's Nursing/Assessment Patient Status: Established Patient OB Clinic Nursing Assessment: Medication Reconciliation, Update PMH in EMR and Vital Signs OB Clinic Coordination of Care: Complex Care and Chronic Disease 1-5, Education Complex Pt/Fam, Consent,records obtained, informed consent, Results/Orders obtained and Staff clarify orders Established Patient Charge Established Patient Point Assignment: 95 Established Patient Point Charge: EP Level 3 (80-115) Antepartum Initial or Follow-up Antepartum Follow up Visit: Yes Assessment & Plan Diagnosis / Problem List (1) Encounter for routine follow-up: Status: Acute Plan Status: - One week following induction and delivery for gestational hypertension. - Current blood pressure well-controlled at 122/83 mmHg without antihypertensive medications. - Experiencing cramping as uterus involutes from enlarged state. - Normal recovery. Plan: - Continue current management without blood pressure medications. - Continue ibuprofen and Tylenol for cramping as needed. - Continue vitamins if available. - Return to clinic at 6 weeks for routine follow-up to discuss control and other care. - Contact clinic immediately for warning signs including headache, visual changes, or right-sided abdominal pain. Establishment: - Initiating feeding with formula and beginning to pump breast milk. - Milk supply may still develop with continued stimulation. Plan: - Continue both formula feeding and breast pumping. - Maintain regular pumping schedule for breast stimulation to encourage milk production.
[2025-06-24 10:14] VITALS: BP 122/83; PULSE 70; RESP 18; TEMP 36.4; O2SAT 97; BMI 35.0
== END 2025-06-24 10:36 | disposition home or self-care (01) ==
LOC: HODSOBC 10:02
PROVIDERS: Supervising Provider Obstetrics & Gynecology; Visit Provider Obstetrics & Gynecology
DX: Z39.2 Encounter for routine postpartum follow-up (principal); Z39.1 Encounter for care and examination of lactating mother
CPT/HCPCS: 99213; Z1034; G0463